=== PATIENT | female | born 1945 | race Caucasian/White ===

== ENCOUNTER 2018-05-18 23:56 | Emergency (ER) | payer MEDICARE, OTHER ==
[~2018-05-18] VITALS: Ht 175.3 cm; Wt 124.7 kg
[2018-05-19] MEDS ORDERED: CYCL10 PO (01:27)
== END 2018-05-19 02:05 | disposition home or self-care (01) ==
LOC: ER 23:56
DX: G89.29 Other chronic pain (principal); M54.5 Low back pain; Z88.6 Allergy status to analgesic agent; Z88.8 Allergy status to other drugs, medicaments and biological substances; N18.9 Chronic kidney disease, unspecified
CPT/HCPCS: 99282

== ENCOUNTER → 2018-10-05 | Outpatient (CLI) | payer MEDICARE, OTHER ==
[~2018-10-05] MED LIST: CYCL10 PO
[2018-10-05 22:33] LABS: Creatinine, Urine Random 81.8 mg/dL (27.00-270.00)
[2018-10-05 22:35] LABS: Microalb/Creat Ratio UR, Rand 325.183 mg/g (0.000-30.000)
== END | disposition home or self-care (01) ==
LOC: LAB SHORT 11:39 → LAB 11:39
PROVIDERS: Nurse Practitioner Family
DX: E11.65 Type 2 diabetes mellitus with hyperglycemia (principal)
CPT/HCPCS: 82043; 82570

== ENCOUNTER → 2019-10-14 | Outpatient (CLI) | payer MEDICARE, OTHER ==
[2019-10-14 20:39] LABS: Creatinine, Urine Random 86.7 mg/dL (27.00-270.00)
[2019-10-14 20:42] LABS: Microalb/Creat Ratio UR, Rand 239.908 mg/g (0.000-30.000)
== END ==
LOC: LAB 15:10 → LAB SHORT 15:10
PROVIDERS: Nurse Practitioner Family
DX: E11.9 Type 2 diabetes mellitus without complications (principal)
CPT/HCPCS: 82043; 82570

== ENCOUNTER → 2020-01-20 | Outpatient (CLI) | payer MEDICARE, OTHER ==
[2020-01-21 19:12] LABS: Adenovirus F 40/41 Not Detected (NOT DETECT); Astrovirus Not Detected (NOT DETECT); Campylobacter Sp Not Detected (NOT DETECT); Cryptosporidium Not Detected (NOT DETECT); Cyclospora Cayetanensis Not Detected (NOT DETECT); E. Coli O157 Not Detected (NOT DETECT); Entamoeba Histolytica Not Detected (NOT DETECT); Enteroaggregative E. coli-EAEC Not Detected (NOT DETECT); Enteropathogenic E. coli-EPEC Not Detected (NOT DETECT); Enterotoxigenic E. coli-ETEC Not Detected (NOT DETECT); Giardia Lamblia Not Detected (NOT DETECT); Norovirus GI/GII Not Detected (NOT DETECT); Plesiomonas Shigelloides Not Detected (NOT DETECT); Rotavirus A Not Detected (NOT DETECT); Salmonella Sp Not Detected (NOT DETECT); Sapovirus Not Detected (NOT DETECT); Shiga Toxin-prod E. coli-STEC Not Detected (NOT DETECT); Shigella/Enteroin E. coli-EIEC Not Detected (NOT DETECT); Vibrio Cholerae Not Detected (NOT DETECT); Vibrio Sp Not Detected (NOT DETECT); Yersinia Enterocolitica Not Detected (NOT DETECT)
== END | disposition home or self-care (01) ==
LOC: LAB SHORT 15:30 → LAB 15:30 → LAB SHORT 01-21 13:27
PROVIDERS: Nurse Practitioner Family
DX: R19.7 Diarrhea, unspecified (principal)
CPT/HCPCS: 0097U; 87177; 87209

== ENCOUNTER 2020-05-02 15:57 | Emergency (ER) | payer MEDICARE, OTHER ==
[~2020-05-02] VITALS: Ht 175.3 cm; Wt 149.7 kg
[2020-05-02 16:10] LABS: Calcium, Ionized (POC) 1.15 mmol/L (1.10-1.46); Chloride (POC) 99 mmol/L (98-108); Creatinine (POC) 1.7 mg/dL (0.6-1.0); Glucose (ISTAT POC) 140 mg/dL (70-99); Hemoglobin (POC) 13.3 g/dL (12.0-16.0); Potassium (POC) 4.4 mmol/L (3.5-5.5); Sodium (POC) 137 mmol/L (135-148); Total CO2 (POC) 27 mmol/L (21-32)
[2020-05-02] MEDS ORDERED: ALLOPURINOL100 M1 PO (16:30)
[2020-05-02] MEDS ORDERED: EUTHYROX200 MC1 PO (16:31)
[2020-05-02] MEDS ORDERED: EZETIMIBE SIMV PO (16:32)
[2020-05-02 16:35] LABS: BASOPHILS ABSOLUTE AUTO 0.05 K/mm3 (0.00-0.23); BASOPHILS PERCENT AUTO 1 % (0-2); EOSINOPHILS ABSOLUTE AUTO 0.12 K/mm3 (0.00-0.68); EOSINOPHILS PERCENT AUTO 1 % (0-6); Hematocrit 39.6 % (33.0-51.0); Hemoglobin 12.5 g/dL (11.5-16.0); IMMATURE GRAN ABSOLUTE AUTO 0.03 K/mm3 (0.00-0.10); IMMATURE GRAN PERCENT AUTO 0 % (0-1); LYMPHOCYTES ABSOLUTE AUTO 2.09 K/mm3 (0.84-5.20); LYMPHOCYTES PERCENT AUTO 25 % (21-46); MONOCYTES ABSOLUTE AUTO 0.96 K/mm3 (0.16-1.47); MONOCYTES PERCENT AUTO 12 % (4-13); Mean Corpuscular HGB Conc 31.6 g/dL (31.5-36.5); Mean Corpuscular Volume 101 fL (80-100); Mean Platelet Volume 10.2 fL (9.1-12.4); NEUTROPHILS ABSOLUTE AUTO 5.08 K/mm3 (1.96-9.15); NEUTROPHILS PERCENT AUTO 61 % (41-73); Platelet Count 286 K/mm3 (150-400); RDW Coefficient Variation 13.4 % (11.7-14.2); Red Blood Cell Count 3.91 M/mm3 (3.80-5.20); White Blood Cell Count 8.33 K/mm3 (4.00-11.30)
[2020-05-02] MEDS ORDERED: INCRUSE ELPT 62.5MCG INH (16:35)
[2020-05-02] MEDS ORDERED: CARVEDILOL3.125 MG PO (16:36)
[2020-05-02] MEDS ORDERED: FLUTICASONE-SA1 EAC9 INH (16:37)
[2020-05-02] MEDS ORDERED: IPRAT-ALBUT 0.5-3 ML NEB (16:38)
[2020-05-02] MEDS ORDERED: Ventolin/Prove6.7 GM INH (16:39)
[2020-05-02] MEDS ORDERED: FUROSEMIDE40 MG PO (16:41)
[2020-05-02] MEDS ORDERED: Klor-Con 1010 MEQ PO (16:42)
[2020-05-02] MEDS ORDERED: FERREX 150150 M1 PO (16:43)
[2020-05-02] MEDS ORDERED: B-121000 MC7 PO (16:43)
[2020-05-02 16:46] LABS: Alanine Aminotransfer (ALT/SGP 23 U/L (12-78); Albumin, Blood 3.3 g/dL (3.4-5.0); Albumin/Globulin Ratio 0.8 (0.8-1.8); Alk Phos 80 U/L (50-136); Anion Gap 5 mmol/L (6-16); Aspartate Aminotrans (AST/SGOT 27 U/L (12-37); Bilirubin, Total 0.4 mg/dL (0.1-1.0); Blood Urea Nitrogen 26 mg/dL (8-24); Bun/Creatinine Ratio 16.1 (12.0-20.0); CO2, Blood 28 mmol/L (21-32); Calcium, Blood 9.2 mg/dL (8.5-10.1); Chloride, Blood 104 mmol/L (98-108); Creatinine, Blood 1.61 mg/dL (0.40-1.00); Ethanol (Alcohol), Blood, Med <3 mg/dL; Glomerular Filtration Rate 33 (60-); Glucose, Blood 140 mg/dL (70-99); Potassium, Blood 4.5 mmol/L (3.5-5.5); Sodium, Blood 137 mmol/L (136-145); Total Protein, Blood 7.3 g/dL (6.4-8.2)
[2020-05-02 16:52] LABS: International Normalized Ratio 0.94; Prothrombin Time Results 10.1 Sec (9.7-11.5)
[2020-05-02] MEDS ORDERED: Vitamin D2000 UNIT PO (17:33)
[2020-05-02] MEDS ORDERED: CYCL10 PO (17:33)
[2020-05-02] MEDS ORDERED: Hair, Skin & N1 EACH PO (17:34)
[2020-05-02] MEDS ORDERED: PROM25 PO (18:53)
== END 2020-05-02 19:16 | disposition home or self-care (01) ==
LOC: ER 15:57
PROVIDERS: Student in an Organized Health Care Education/Training Program
DX: G45.9 Transient cerebral ischemic attack, unspecified (principal); E11.22 Type 2 diabetes mellitus with diabetic chronic kidney disease; N18.9 Chronic kidney disease, unspecified; Z88.6 Allergy status to analgesic agent; Z79.899 Other long term (current) drug therapy
CPT/HCPCS: 36415; 70450; 80047; 80053; 85014; 85025; 85610; 85730; 93005; 93010; 96374; 96375; 99285-25; G0480; J1200; J2550

== ENCOUNTER 2020-05-04 16:34 | Emergency (ER) | payer MEDICARE, OTHER ==
[~2020-05-04] VITALS: Ht 177.8 cm; Wt 136.1 kg
[~2020-05-04 16:34] MED LIST changes: +ALLOPURINOL100 M1 PO; +B-121000 MC7 PO; +CARVEDILOL3.125 MG PO; +EUTHYROX200 MC1 PO; +EZETIMIBE SIMV PO; +FERREX 150150 M1 PO; +FLUTICASONE-SA1 EAC9 INH; +FUROSEMIDE40 MG PO; +Hair, Skin & N1 EACH PO; +INCRUSE ELPT 62.5MCG INH; +IPRAT-ALBUT 0.5-3 ML NEB; +Klor-Con 1010 MEQ PO; +PROM25 PO; +Ventolin/Prove6.7 GM INH; +Vitamin D2000 UNIT PO
[2020-05-04 17:25] LABS: BASOPHILS ABSOLUTE AUTO 0.08 K/mm3 (0.00-0.23); BASOPHILS PERCENT AUTO 1 % (0-2); EOSINOPHILS ABSOLUTE AUTO 0.13 K/mm3 (0.00-0.68); EOSINOPHILS PERCENT AUTO 2 % (0-6); Hematocrit 41.9 % (33.0-51.0); Hemoglobin 13.4 g/dL (11.5-16.0); IMMATURE GRAN ABSOLUTE AUTO 0.02 K/mm3 (0.00-0.10); IMMATURE GRAN PERCENT AUTO 0 % (0-1); LYMPHOCYTES ABSOLUTE AUTO 2.11 K/mm3 (0.84-5.20); LYMPHOCYTES PERCENT AUTO 27 % (21-46); MONOCYTES ABSOLUTE AUTO 0.87 K/mm3 (0.16-1.47); MONOCYTES PERCENT AUTO 11 % (4-13); Mean Corpuscular Volume 100 fL (80-100); Mean Platelet Volume 10.2 fL (9.1-12.4); NEUTROPHILS ABSOLUTE AUTO 4.51 K/mm3 (1.96-9.15); NEUTROPHILS PERCENT AUTO 58 % (41-73); Platelet Count 308 K/mm3 (150-400); RDW Coefficient Variation 13.2 % (11.7-14.2); Red Blood Cell Count 4.19 M/mm3 (3.80-5.20); White Blood Cell Count 7.72 K/mm3 (4.00-11.30)
[2020-05-04 17:46] LABS: Albumin, Blood 3.9 g/dL (3.4-5.0); Albumin/Globulin Ratio 0.9 (0.8-1.8); Bilirubin, Total 0.5 mg/dL (0.1-1.0); Bun/Creatinine Ratio 16.5 (12.0-20.0); Calcium, Blood 10.5 mg/dL (8.5-10.1); Creatinine, Blood 1.76 mg/dL (0.40-1.00); Globulin, Blood 4.4 g/dL (2.2-4.0); Potassium, Blood 4.2 mmol/L (3.5-5.5); Total Protein, Blood 8.3 g/dL (6.4-8.2)
[2020-05-04] MEDS ORDERED: COMPAZINE10 MG PO (22:03)
== END 2020-05-04 22:22 | disposition home or self-care (01) ==
LOC: ER 16:34
PROVIDERS: Physician Assistant
DX: I12.9 Hypertensive chronic kidney disease with stage 1 through stage 4 chronic kidney disease, or unspecified chronic kidney disease (principal); E11.22 Type 2 diabetes mellitus with diabetic chronic kidney disease; N18.9 Chronic kidney disease, unspecified; Z91.81 History of falling; Z88.6 Allergy status to analgesic agent; Z79.899 Other long term (current) drug therapy
CPT/HCPCS: 36415; 70450; 80053; 85025; 93005; 93010; 96374; 96375; 99284-25; J0780; J1200

== ENCOUNTER 2020-10-21 14:23 | Inpatient (IN) | payer MEDICARE, OTHER ==
[~2020-10-21] VITALS: Ht 177.8 cm; Wt 164.8 kg
[~2020-10-21 14:23] MED LIST changes: -ALLOPURINOL100 M1 PO; -CARVEDILOL3.125 MG PO; +COMPAZINE10 MG PO; -EUTHYROX200 MC1 PO; -EZETIMIBE SIMV PO; -IPRAT-ALBUT 0.5-3 ML NEB; -Ventolin/Prove6.7 GM INH
[2020-10-21 15:33] LABS: BASOPHILS ABSOLUTE AUTO 0.05 K/mm3 (0.00-0.23); BASOPHILS PERCENT AUTO 0 % (0-2); EOSINOPHILS ABSOLUTE AUTO 0.16 K/mm3 (0.00-0.68); EOSINOPHILS PERCENT AUTO 1 % (0-6); Hematocrit 20.8 % (33.0-51.0); IMMATURE GRAN ABSOLUTE AUTO 0.08 K/mm3 (0.00-0.10); IMMATURE GRAN PERCENT AUTO 1 % (0-1); LYMPHOCYTES ABSOLUTE AUTO 1.03 K/mm3 (0.84-5.20); LYMPHOCYTES PERCENT AUTO 9 % (21-46); MONOCYTES ABSOLUTE AUTO 0.94 K/mm3 (0.16-1.47); MONOCYTES PERCENT AUTO 8 % (4-13); Mean Corpuscular HGB 26.3 pg (26.0-34.0); Mean Corpuscular HGB Conc 28.4 g/dL (31.5-36.5); Mean Corpuscular Volume 93 fL (80-100); Mean Platelet Volume 9.8 fL (9.1-12.4); NEUTROPHILS ABSOLUTE AUTO 9.31 K/mm3 (1.96-9.15); NEUTROPHILS PERCENT AUTO 81 % (41-73); NRBC ABSOLUTE 0.04 K/mm3 (0.00-0.02); NRBC Auto 0.3 /100 WBC (0.0-0.2); Platelet Count 336 K/mm3 (150-400); RDW Coefficient Variation 16.8 % (11.7-14.2); RDW Standard Deviation 57.2 fL (35.1-46.3); Red Blood Cell Count 2.24 M/mm3 (3.80-5.20); White Blood Cell Count 11.57 K/mm3 (4.00-11.30)
[2020-10-21 15:42] LABS: Hemoglobin 5.9 g/dL (11.5-16.0)
[2020-10-21 15:59] LABS: Albumin/Globulin Ratio 0.8 (0.8-1.8); Bilirubin, Total 0.3 mg/dL (0.1-1.0); Bun/Creatinine Ratio 28.9 (12.0-20.0); Calcium, Blood 8.3 mg/dL (8.5-10.1); Creatinine, Blood 1.9 mg/dL (0.40-1.00); Globulin, Blood 3.6 g/dL (2.2-4.0); Potassium, Blood 4.8 mmol/L (3.5-5.5); Total Protein, Blood 6.6 g/dL (6.4-8.2); Troponin I 0.018 ng/mL (0.000-0.040)
[2020-10-21] MEDS ORDERED: ELIQUIS5 M3 PO (18:06)
[2020-10-21] MEDS ORDERED: INCRUSE 62.5 MCG INH (18:07)
[2020-10-21 18:18] LABS: Percent Saturation 3.1 % (15.0-50.0)
[2020-10-21 19:22] LABS: PCO2 Arterial 69.7 mmHg (35-45); pH Blood Arterial 7.22 (7.35-7.45)
[2020-10-21 19:23] LABS: PO2 Arterial 127 mmHg (80-100)
[2020-10-21 22:35] LABS: Source, Urine Catheter
[2020-10-21 22:37] LABS: Bilirubin, Urine Neg (Neg); Blood, Urine Neg (Neg); Glucose Qualitative, Urine Neg (Neg); Ketones, Urine Neg (Neg); Leukocyte Esterase, Urine Neg (Neg); Nitrite, Urine Neg (Neg); Protein, Urine 3+ (Neg); Urobilinogen, Urine NORM (Normal)
[2020-10-21 22:38] LABS: Appearance, Urine Clear (Clear); Color, Urine Yellow (P-Yellow)
[2020-10-21 22:50] LABS: Amorphous Light (0-Heavy); Bacteria Rare /hpf; Red Blood Cells, Urine Not Seen /hpf (0-2); Squamous Epithelial Cells Few /hpf (Few); White Blood Cells, Urine Rare /hpf (0-5)
[2020-10-21 23:30] LABS: Magnesium, Blood 1.9 mg/dL (1.6-2.4); Phosphorus, Blood 4.9 mg/dL (2.5-4.9); Troponin I 0.018 ng/mL (0.000-0.040)
--- NOTE | 2020-10-22 | NUR ---
PT ADMITTED TO ROOM ICU 1 UNDER PCU STATUS. ARRIVES TO ROOM AT 2215. PT PRESENTS ON 4 LITERS OF OXYGEN PER NASAL CANNULA. PT NOTEABLY CONFUSED. IS UNABLE TO ANSWER QUESTIONS OTHER THAN VERY BASIC. PT NOTED TO PULL AT LINES AND IV'S. REDIRECTION ONLY AFFECTIVE FOR SHORT PERIODS. TO ROOM TO ASSIST IN ADMIT PROCESS. NOTED: PT'S VERY ATTENTIVE TO PT'S NEEDS AND HER DISTRESS. REQUIRES MUCH TEACHING ON PT'S STATUS. HE HAS GONE HOME FOR THE NIGHT. PT'S HAS PULLED OUT ONE OF HER IV'S AND WOULD NOT LEAVE OXYGEN IN PLACE. PLACED PT IN SOFT WRIST RESTRAINTS. TEACHING WAS DONE WITH PT AND HER ON RATIONALE FOR RESTRAINTS. PLACED 18 GAUGE IV TO LEFT AC. LOCKER ATTENDANT ARISTEO TO ROOM. ORDERS RECEIVED. WILL REVIEW CHART AND PLAN OF CARE FOR THIS PT.
[2020-10-22 00:59] LABS: Hematocrit 22.3 % (33.0-51.0); Hemoglobin 6.3 g/dL (11.5-16.0)
--- NOTE | 2020-10-22 03:00 | NUR ---
PT IN PROCESS OF RECEIVING ONE UNIT PRBC'S. NO S/S TRANSFUSION REACTIONS TO NOTE. PT HAS BEEN ON BIPAP AND HAS ATTEMPTED TO GET REMOVED WITH MOVING ABOUT BED AND USING HER FACIAL MUSCLES. PT DOES AGREE TO KEEP BIPAP IN PLACE. HAS BEEN MAINTAINING OXYGEN SATURATIONS > 90 PERCENT. WILL CONTINUE TO MONITOR.
--- NOTE | 2020-10-22 04:59 | NUR ---
DURING PT'S ADMISSION PROCESS, HER CLAIMS THAT WHEN HER PCP PLACED HER ON PREDNISONE, SHE HAS BEEN HAVING ISSUES WITH ITCHING. PT HAD COMPLAINED OF ITCHING WHEN SHE WAS ADMITTED, AND NOW THAT SHE IS AWAKE, IS YELLING OUT ABOUT THE ITCHING. WILL ADMINISTER ONE TIME DOSE OF BENADRYL. PT DOES NOT REDIRECT WELL. HAS COMPLETED HER BLOOD TRANSFUSION WITHOUT ISSUES. THE ITCHING PT IS EXPERIENCING IS SAME PRIOR TO TRANSFUSION.
[2020-10-22 05:42] LABS: BASOPHILS ABSOLUTE AUTO 0.04 K/mm3 (0.00-0.23); BASOPHILS PERCENT AUTO 0 % (0-2); EOSINOPHILS ABSOLUTE AUTO 0.15 K/mm3 (0.00-0.68); EOSINOPHILS PERCENT AUTO 1 % (0-6); Hematocrit 24.9 % (33.0-51.0); Hemoglobin 7.2 g/dL (11.5-16.0); IMMATURE GRAN ABSOLUTE AUTO 0.08 K/mm3 (0.00-0.10); IMMATURE GRAN PERCENT AUTO 1 % (0-1); LYMPHOCYTES ABSOLUTE AUTO 1.21 K/mm3 (0.84-5.20); LYMPHOCYTES PERCENT AUTO 11 % (21-46); MONOCYTES PERCENT AUTO 10 % (4-13); Mean Corpuscular HGB 26.8 pg (26.0-34.0); Mean Corpuscular HGB Conc 28.9 g/dL (31.5-36.5); Mean Corpuscular Volume 93 fL (80-100); Mean Platelet Volume 9.4 fL (9.1-12.4); NEUTROPHILS ABSOLUTE AUTO 8.69 K/mm3 (1.96-9.15); NEUTROPHILS PERCENT AUTO 77 % (41-73); NRBC ABSOLUTE 0.13 K/mm3 (0.00-0.02); NRBC Auto 1.2 /100 WBC (0.0-0.2); Platelet Count 329 K/mm3 (150-400); RDW Coefficient Variation 16.8 % (11.7-14.2); RDW Standard Deviation 56.7 fL (35.1-46.3); Red Blood Cell Count 2.69 M/mm3 (3.80-5.20); White Blood Cell Count 11.27 K/mm3 (4.00-11.30)
[2020-10-22 05:43] LABS: PCO2 Arterial 66.1 mmHg (35-45); PO2 Arterial 64.7 mmHg (80-100); pH Blood Arterial 7.25 (7.35-7.45)
--- NOTE | 2020-10-22 05:47 | NUR ---
PT'S ITCHING IS IMPROVING AFTER RECEIVING BENADRYL. PT DOES REMAIN CONFUSED, AND NEEDING TO BE IN RESTRAINTS. WHEN RELEASING RESTRAINTS TO CHANGE PT'S GOWN AND BLANKETS, SHE QUICKLY REACHES FOR HER IV AND PULSE OXIMETRY PROBE. PT NEEDS TO BE REDIRECTED. PT HAS BEEN MOVING ABOUT BED ON HER OWN. WILL CONTINUE TO MONITOR PT, AND WILL REPORT OFF TO ONCOMING RN.
[2020-10-22 05:48] LABS: Anion Gap 4 mmol/L (6-16); Blood Urea Nitrogen 56 mg/dL (8-24); Bun/Creatinine Ratio 27.6 (12.0-20.0); CO2, Blood 31 mmol/L (21-32); Calcium, Blood 8.6 mg/dL (8.5-10.1); Chloride, Blood 106 mmol/L (98-108); Creatinine, Blood 2.03 mg/dL (0.40-1.00); Glomerular Filtration Rate 25 (60-); Glucose, Blood 122 mg/dL (70-99); Phosphorus, Blood 5.1 mg/dL (2.5-4.9); Potassium, Blood 4.7 mmol/L (3.5-5.5); Sodium, Blood 141 mmol/L (136-145)
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
--- NOTE | 2020-10-22 10:43 | NUR ---
Alerted by Dr. Tabor that the pt's spo2 was too high due to her hx of COPD;. Noted spo2 100% on bipap with fio2 of 30%. Decreased to 25%, spo2 remained 99%. spo2 decreased to 21% and spo2 dropped to 88%. Increased again to 25% and at this time spo2 is 90-93%.
--- NOTE | 2020-10-22 11:06 | NUR ---
Pt while on bipap awakened easily to conversation. At this time, taken off the bipap to take her medications orally. she is talking completely coherently, states that it is October 23 2020, that she came into the hospital for breathing difficulties and is carrying on conversation in detail about her health problems the past month. She is awake, alert, and does not appear sleepy at all.
[2020-10-22 12:51] LABS: PCO2 Arterial 76.7 mmHg (35-45); PO2 Arterial 78.1 mmHg (80-100); pH Blood Arterial 7.22 (7.35-7.45)
--- NOTE | 2020-10-22 13:12 | NUR ---
Repeat ABG noted, and called to provider by Trina Steinberg. Pt was very agreeable to put the BIPAP back on, settings 18/8 and 25% fiO2.
--- NOTE | 2020-10-22 18:22 | NUR ---
SUMMARY Jaquelin wore the bipap for most of the day, and her mentation at noon was much improved. This has remained consistent throughout the afternoon, despite an ABG which was not much better this afternoon. She does not require much oxygen to keep her spo2 greater than 90; only 2 l/min, or 25% fio2 on the bipap. She was compliant with using the bipap. She was oriented, cooperative and appropriate in conversation. Restraints were d'cd at around 0730 this morning. Appetite fair. No bowel movements, and large amounts of urine collected in the villarreal bag. Encouraging limitations on oral intake in compliance with what she said is a home regimen as well, as she is being diuresed for fluid volume overload and CHF. here to visit, and brought her home medications for verification, which were sent to the in house pharmacy.
--- NOTE | 2020-10-22 19:45 | NUR ---
ASSUMED CARE OF PATIENT. SHE IS SLEEPING SOUNDLY ON BIPAP (AVAPS) 20-25/10, TV-400, FIO2-30%. VS WNL. SHE AWAKENS FOR ASSESSMENT AND ORAL CARE WITH SOME DIFFICULTY, BUT IS AO X 4/4 WHEN AWAKE. SHE DENIES PAIN OR SOB. STATES SHE IS COMFORTABLE IN HER CURRENT POSITION AND READY TO GO BACK TO SLEEP.
--- NOTE | 2020-10-22 21:58 | NUR ---
SRINI YORK PLACED PER PROVIDER SINCE DUPLEX STUDY IS NEGATIVE.
--- NOTE | 2020-10-23 01:14 | NUR ---
DR. MARSHALL IS CALLED REGARDING PT C/O ITCHING THAT IS KEEPING HER AWAKE. THE PATIENT HAS BEEN HAVING THIS ITCHING FOR A WEEK AND WAS PUT ON STEROIDS BY HER PCP. NO RASH PRESENT, VS WNL. ORDER FOR BENADRYL 25MG PO X 1 NOW.
[2020-10-23 03:44] LABS: BASOPHILS ABSOLUTE AUTO 0.04 K/mm3 (0.00-0.23); BASOPHILS PERCENT AUTO 0 % (0-2); EOSINOPHILS ABSOLUTE AUTO 0.19 K/mm3 (0.00-0.68); EOSINOPHILS PERCENT AUTO 2 % (0-6); Hematocrit 22.4 % (33.0-51.0); Hemoglobin 6.4 g/dL (11.5-16.0); IMMATURE GRAN ABSOLUTE AUTO 0.06 K/mm3 (0.00-0.10); IMMATURE GRAN PERCENT AUTO 1 % (0-1); LYMPHOCYTES ABSOLUTE AUTO 1.19 K/mm3 (0.84-5.20); LYMPHOCYTES PERCENT AUTO 13 % (21-46); MONOCYTES ABSOLUTE AUTO 0.97 K/mm3 (0.16-1.47); MONOCYTES PERCENT AUTO 11 % (4-13); Mean Corpuscular HGB 26.2 pg (26.0-34.0); Mean Corpuscular HGB Conc 28.6 g/dL (31.5-36.5); Mean Corpuscular Volume 92 fL (80-100); Mean Platelet Volume 9.4 fL (9.1-12.4); NEUTROPHILS ABSOLUTE AUTO 6.44 K/mm3 (1.96-9.15); NEUTROPHILS PERCENT AUTO 73 % (41-73); NRBC ABSOLUTE 0.11 K/mm3 (0.00-0.02); NRBC Auto 1.2 /100 WBC (0.0-0.2); Platelet Count 268 K/mm3 (150-400); RDW Coefficient Variation 17.1 % (11.7-14.2); RDW Standard Deviation 57.6 fL (35.1-46.3); Red Blood Cell Count 2.44 M/mm3 (3.80-5.20); White Blood Cell Count 8.89 K/mm3 (4.00-11.30)
[2020-10-23 04:01] LABS: Albumin, Blood 2.6 g/dL (3.4-5.0); Anion Gap 4 mmol/L (6-16); Blood Urea Nitrogen 56 mg/dL (8-24); Bun/Creatinine Ratio 25.1 (12.0-20.0); CO2, Blood 32 mmol/L (21-32); Calcium, Blood 8.2 mg/dL (8.5-10.1); Chloride, Blood 104 mmol/L (98-108); Creatinine, Blood 2.23 mg/dL (0.40-1.00); Glomerular Filtration Rate 23 (60-); Glucose, Blood 103 mg/dL (70-99); Potassium, Blood 4.1 mmol/L (3.5-5.5); Sodium, Blood 140 mmol/L (136-145)
--- NOTE | 2020-10-23 05:21 | NUR ---
PT REMAINS AOX4/4 THROUGHOUT THE NIGHT. SHE IS ON BIPAP WITH SHORT BREAKS FOR ORAL CARE AND SIPS OF WATER OR ICE CHIPS ALL NIGHT. SHE SLEPT RESTLESSLY AND HAD AN EPISODE OF SEVERE ITCHING WHICH WAS RELEIVED WITH LOTION TO AFFECTED AREAS AND PO BENADRYL. NO STOOL PASSED, 1400 UO, AM H&H 6.4/24. DR. MARSHALL IS NOTIFIED OF LABS AND 1 UNIT PRBC'S ORDERED. PT IS PLEASANT AND COOPERATIVE, BUT DOES NOT CARE FOR THE BIPAP MASK.
[2020-10-23 11:22] LABS: Hematocrit 24.6 % (33.0-51.0); Hemoglobin 7.3 g/dL (11.5-16.0)
--- NOTE | 2020-10-23 12:30 | NUR ---
REASSESSMENT PT IS ALERT AND ORIENTED x4. O2 DECREASED TO 1L NC AND HAS MAINTAINED SPO2 BETWEEN 88-94%. OCCUPATIONAL THERAPY ASSISTED PT UP TO CHAIR AND PT IS TOLERATING WELL. WILLIAMSON TO GRAVITY DRAINING CLEAR YELLOW URINE.
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
--- NOTE | 2020-10-23 16:30 | NUR ---
REASSESMENT PT REMAINS A&Ox4. 02 1L WHILE PT AWAKE, 2L WHILE SLEEPING, PT REPORTS HER BREATHING IS EASIER. WILLIAMSON TO GRAVITY, DRAINING YELLOW URINE. SINUS RHYTHM ON THE MONITOR, VITALS HAVE REMAINED STABLE. 1 PERSON ASSIST TO AMBULATE/TRANSFER.
--- NOTE | 2020-10-23 18:08 | NUR ---
TRANSFER OF CARE REPORT GIVEN TO RENATA JACKSON IN PCU. PT TRANSFERRED TO PCU 1. BELONGINGS GATHERED AND TAKEN WITH PT. PT ESCORTED BY PCT VIA WHEELCHAIR.
[2020-10-23 18:42] LABS: Hematocrit 26.7 % (33.0-51.0); Hemoglobin 7.8 g/dL (11.5-16.0)
--- NOTE | 2020-10-23 18:42 | NUR ---
ASSUMED CARE PT TRANSFERRED TO UNIT FROM ICU VIA WC. PT ABLE TO AMBULATE TO BED VIA SBA. PT ORIENTED TO UNIT. PT DENIES ANY NEEDS AT THIS TIME. WILL CONTINUE TO MONITOR AND REPORT TO ONCOMING RN. CALL LIGHT IN REACH.
[2020-10-23 22:36] LABS: Influenza A, PCR NEGATIVE (NEGATIVE); Influenza B, PCR NEGATIVE (NEGATIVE); Resp Syncytial Virus, PCR NEGATIVE (NEGATIVE); SARS-Cov-2 (COVID-19) PCR, MMC NEGATIVE (NEGATIVE)
[2020-10-24 04:06] LABS: Hematocrit 27.4 % (33.0-51.0)
[2020-10-24 04:27] LABS: Bun/Creatinine Ratio 27.3 (12.0-20.0); Calcium, Blood 8.6 mg/dL (8.5-10.1); Creatinine, Blood 2.16 mg/dL (0.40-1.00); Potassium, Blood 4.4 mmol/L (3.5-5.5)
--- NOTE | 2020-10-24 06:53 | NUR ---
SHIFT SUMMARY PATIENT VERY PLEASENT AND COOPERATIVE THROUGHOUT THE NIGHT. PATIENT APPEARED TO SLEEP WELL THROUGHOUT MOST OF THE NIGHT. THIS MORNING PATIENT REPORTED THAT SHE FELT THAT SHE SLEPT VERY WELL LAST NIGHT. PATIENT CURRENTLY SITTING UP IN BED WATCHING TV. PATIENT REMAINED ON 1-2L O2 THROUGHOUT THE NIGHT. CONTINUOUS BIOX IN PLACE. PATIENT DID NOT USE BIPAP, RESPIRTORY THERAPY STATED SHE DID NOT NEED TO USE BIPAP IF SHE DID NOT WANT TO. PATIENT DENIES ANY NEEDS AT THIS TIME. PATIENT VERY CHEERFUL. WILL CONTINUE CURRENT PLAN OF CARE.
--- NOTE | 2020-10-24 08:59 | NUR ---
10/24/20 0859 Lina Dumont History, Chart, Medications and Allergies reviewed before start of procedure.PATIENT CONFIRMS NPO STATUS AND AGREES WITH SCHEDULED PROCEDURE. O2 VIA N/C INTACT THROUGHOUT SEDATION/PROCEDURE. See Anesthesia record.
--- NOTE | 2020-10-24 09:38 | NUR ---
ASSUMED CARE, MORNING UPDATE PT WAS AWAKE AND PARTICIPATED IN REPORT. PT WAS NPO AT THE START OF SHIFT, MORNING MEDS WERE HELD SINCE PT WAS GOING IN FOR AN UPPER GI SCOPE WITH DR. BARAJAS. PT LEFT WITH DAY SURGERY AT APPROXIMATELY 0845 AND RETURNED AT APPROXIMATELY 0945. PT IS AWAKE AND ORIENTED UPON RETURN. VS STABLE. PT CURRENTLY USING BSC
[2020-10-24 11:43] LABS: Hematocrit 23.3 % (33.0-51.0); Hemoglobin 6.7 g/dL (11.5-16.0)
--- NOTE | 2020-10-24 13:55 | NUR ---
BLOOD TRANSFUSION PT HAD A DROP IN HgB AGAIN THIS MORNING, AN ADDITIONAL UNIT OF pRBC's HAVE BEEN ORDERED AND STARTED. PT IS TOLERATING WELL AT THIS POINT, NO SIGNS OF REACTION, VS STABLE. PT SLEEPING.
[2020-10-24 18:13] LABS: Hematocrit 28.4 % (33.0-51.0); Hemoglobin 8.3 g/dL (11.5-16.0)
--- NOTE | 2020-10-24 18:13 | NUR ---
SHIFT SUMMARY PT RETURNED FROM THE UPPER SCOPE WITH DR. BARAJAS LATE MORNING. PT WAS VERY GROGY FOLLOWING THE PROCEDURE. PT'S HgB HAD DROPPED AGAIN AND SHE HAD SEVERAL MORE BLACK STOOLS FOLLOWING THE SCOPE. PT RECEIVED 1 UNIT OF pRBCs AND TOLERATED WELL. PT HAD A FEW MINUTES OF INTERMITTEN CONFUSION WHEN SHE WAS FIRST WAKING UP. PT WAS ABLE TO BECOME REORIENTED SHE REMAINED AWAKE AND VISITNG WITH HER . A NEW STAT LOCK WAS PLACED ON HER WILLIAMSON THE PREVIOUS HAD BROKEN. VS STABLE, PT ON 2L VIA NC TO MAINTAIN SATS ABOVE 92%.
[2020-10-25 05:40] LABS: Hematocrit 29.7 % (33.0-51.0); Hemoglobin 8.6 g/dL (11.5-16.0)
[2020-10-25 05:56] LABS: Bun/Creatinine Ratio 26.9 (12.0-20.0); Calcium, Blood 8.5 mg/dL (8.5-10.1); Creatinine, Blood 1.93 mg/dL (0.40-1.00); Potassium, Blood 4.1 mmol/L (3.5-5.5)
--- NOTE | 2020-10-25 06:43 | NUR ---
SHIFT SUMMARY PATIENT PLEASENT AND COOPERATIVE. PATIENT AWAKE MUCH OF THE NIGHT, PATIENT STATED THAT SHE JUST WAS NOT ABLE TO SLEEP TONIGHT, HOWEVER PATIENT APPEARED TO BE SLEEPING WELL FOR THE LAST FEW HOURS OF THE SHIFT. PATIENT UP TO THE RECLINER PRN, PATIENT REPORTS SHE OFTEN SLEEPS IN A RECLINER AT HOME. VITAL SIGNS CHARTED. PATIENT CURRENTLY APPEARS TO BE SLEEPING, PATIENT APPEARS TO BE MOVING SELF ABOUT IN BED WELL. WILL CONTINUE CURRENT PLAN OF CARE.
--- NOTE | 2020-10-25 10:00 | NUR ---
ASSUMED CARE FROM ML RN, MORNING UPDATE. PT WAS SLEEPING DURING REPORT. VS STABLE THIS MORNING; PT ABLE TO TAKE ALL MORNING MEDICATIONS. PT DANGLED AT THE EDGE OF THE BED FOR BREAKFAST AND MEDS BEFORE LYING BACK DOWN TO REST. PT REMAINS ON 2L O2 VIA NC. PT IS AWAITING DISCHARGE TODAY FOLLOWING HOME O2 EVALUATION WITH RT.
[2020-10-25] MEDS ORDERED: ASCO500 PO (12:33)
--- NOTE | 2020-10-25 13:28 | NUR ---
DISCHARGE PT COMPLETED HER HOME O2 EVALUATION WITH RESPIRATORY THERAPY AND IT WAS DETERMINED THAT SHE SHOULD BE ON 2L O2 VIA NC AT HOME; ARRANGEMENTS HAVE BEEN MADE WITH LINCARE. WILLIAMSON WAS DC'D IN PREP FOR DISCHARGE WAS THE POWERGLIDE AND IV. VS STABLE, PT RELEASED HOME WITH SPOUSE AND ESCORTED OUT VIA WHEELCHAIR AT APPROXIMATELY 1310
== END 2020-10-25 13:10 | disposition home or self-care (01) | DRG 291 ==
LOC: ER 14:23 → ERHOLD 18:10 → ICUE 22:03 → PCU 10-22 00:17 → ICUE 10-22 00:17 → PCU 10-23 18:09
PROVIDERS: Emergency Medicine; Internal Medicine Gastroenterology; Nurse Practitioner Acute Care; Physician Assistant; Student in an Organized Health Care Education/Training Program; ADMIT Internal Medicine
PROC: 5A09357 Assistance with Respiratory Ventilation, Less than 24 Consecutive Hours, Continuous Positive Airway Pressure (ICD-10-PCS; principal; 2020-10-22)
PROC: 0DB98ZX Excision of Duodenum, Via Natural or Artificial Opening Endoscopic, Diagnostic (ICD-10-PCS; 2020-10-24)
DX: I50.31 Acute diastolic (congestive) heart failure (principal); J96.02 Acute respiratory failure with hypercapnia; Z68.41 Body mass index [BMI] 40.0-44.9, adult; N17.9 Acute kidney failure, unspecified; E87.2 Acidosis; J98.11 Atelectasis; Z87.891 Personal history of nicotine dependence; E66.01 Morbid (severe) obesity due to excess calories; E11.22 Type 2 diabetes mellitus with diabetic chronic kidney disease; Q24.9 Congenital malformation of heart, unspecified; I08.0 Rheumatic disorders of both mitral and aortic valves; D64.89 Other specified anemias; N18.32 Chronic kidney disease, stage 3b; J44.9 Chronic obstructive pulmonary disease, unspecified; I48.0 Paroxysmal atrial fibrillation; E78.5 Hyperlipidemia, unspecified; Z86.73 Personal history of transient ischemic attack (TIA), and cerebral infarction without residual deficits; E03.9 Hypothyroidism, unspecified; D50.9 Iron deficiency anemia, unspecified; I27.20 Pulmonary hypertension, unspecified; Z79.01 Long term (current) use of anticoagulants; K31.89 Other diseases of stomach and duodenum; D63.1 Anemia in chronic kidney disease; Z78.1 Physical restraint status
CPT/HCPCS: 0241U; 36415; 36430; 36600; 51702; 71045; 80048; 80053; 80069; 81001; 82728; 82803; 82947; 83540; 83550; 83735; 83880; 84100; 84484; 85014; 85018; 85025; 85379; 86850; 86900; 86901; 86923; 88305; 93005; 93010; 93306; 93970; 94640; 94660; 94761; 94762; 96374-59; 96375; 96375-59; 97110; 97162; 97165; 97530; 99285-25; A9270; C1751; G0378; J1200; J1940; J2060; J2704; J2916; J7030; J7050; J7120; P9016

== ENCOUNTER 2020-11-04 10:24 | Emergency (ER) | payer MEDICARE, OTHER ==
[~2020-11-04] VITALS: Ht 172.7 cm; Wt 149.7 kg
[~2020-11-04 10:24] MED LIST changes: +ASCO500 PO; +ELIQUIS5 M3 PO; +INCRUSE 62.5 MCG INH
[2020-11-04 11:36] LABS: BASOPHILS ABSOLUTE AUTO 0.04 K/mm3 (0.00-0.23); BASOPHILS PERCENT AUTO 1 % (0-2); EOSINOPHILS PERCENT AUTO 2 % (0-6); Hematocrit 28.5 % (33.0-51.0); Hemoglobin 8.2 g/dL (11.5-16.0); IMMATURE GRAN ABSOLUTE AUTO 0.02 K/mm3 (0.00-0.10); IMMATURE GRAN PERCENT AUTO 0 % (0-1); LYMPHOCYTES ABSOLUTE AUTO 1.09 K/mm3 (0.84-5.20); LYMPHOCYTES PERCENT AUTO 16 % (21-46); MONOCYTES ABSOLUTE AUTO 0.61 K/mm3 (0.16-1.47); MONOCYTES PERCENT AUTO 9 % (4-13); Mean Corpuscular HGB 29.1 pg (26.0-34.0); Mean Corpuscular HGB Conc 28.8 g/dL (31.5-36.5); Mean Corpuscular Volume 101 fL (80-100); Mean Platelet Volume 10.6 fL (9.1-12.4); NEUTROPHILS ABSOLUTE AUTO 5.01 K/mm3 (1.96-9.15); NEUTROPHILS PERCENT AUTO 73 % (41-73); Platelet Count 226 K/mm3 (150-400); RDW Coefficient Variation 21.4 % (11.7-14.2); RDW Standard Deviation 79.2 fL (35.1-46.3); Red Blood Cell Count 2.82 M/mm3 (3.80-5.20); White Blood Cell Count 6.87 K/mm3 (4.00-11.30)
[2020-11-04 11:56] LABS: Albumin, Blood 3.1 g/dL (3.4-5.0); Bilirubin, Total 0.5 mg/dL (0.1-1.0); Bun/Creatinine Ratio 32.7 (12.0-20.0); Calcium, Blood 8.5 mg/dL (8.5-10.1); Creatinine, Blood 1.47 mg/dL (0.40-1.00); Globulin, Blood 3.2 g/dL (2.2-4.0); Total Protein, Blood 6.3 g/dL (6.4-8.2)
[2020-11-04 15:24] LABS: Source, Urine Clean Catch
[2020-11-04 15:26] LABS: Appearance, Urine Clear (Clear); Bilirubin, Urine Neg (Neg); Blood, Urine 4+ (Neg); Color, Urine Yellow (P-Yellow); Glucose Qualitative, Urine Neg (Neg); Ketones, Urine Neg (Neg); Leukocyte Esterase, Urine Neg (Neg); Nitrite, Urine Neg (Neg); Protein, Urine 2+ (Neg); Specific Gravity, Urine 1.015 (1.003-1.022); Urobilinogen, Urine NORM (Normal)
[2020-11-04 15:48] LABS: Bacteria Few /hpf; Squamous Epithelial Cells Few /hpf (Few); White Blood Cells, Urine 0-2 /hpf (0-5)
== END 2020-11-04 16:13 | disposition home or self-care (01) ==
LOC: ER 10:24
PROVIDERS: Emergency Medicine; Physician Assistant
DX: K92.2 Gastrointestinal hemorrhage, unspecified (principal); J44.9 Chronic obstructive pulmonary disease, unspecified; E11.22 Type 2 diabetes mellitus with diabetic chronic kidney disease; N18.9 Chronic kidney disease, unspecified; I25.10 Atherosclerotic heart disease of native coronary artery without angina pectoris; I50.9 Heart failure, unspecified; Z79.01 Long term (current) use of anticoagulants; Z88.6 Allergy status to analgesic agent; Z79.82 Long term (current) use of aspirin; Z79.899 Other long term (current) drug therapy
CPT/HCPCS: 36415; 74177; 80053; 81001; 85025; 86850; 86900; 86901; 93005; 93010; 96374-59; 99284-25; A9270; J1200; J7030; Q9967

== ENCOUNTER 2020-11-16 14:37 | Emergency (ER) | payer MEDICARE, OTHER ==
[~2020-11-16] VITALS: Ht 172.7 cm; Wt 145.2 kg
[2020-11-16 16:08] LABS: BASOPHILS ABSOLUTE AUTO 0.03 K/mm3 (0.00-0.23); BASOPHILS PERCENT AUTO 1 % (0-2); EOSINOPHILS ABSOLUTE AUTO 0.06 K/mm3 (0.00-0.68); EOSINOPHILS PERCENT AUTO 1 % (0-6); Hematocrit 26.9 % (33.0-51.0); Hemoglobin 7.5 g/dL (11.5-16.0); IMMATURE GRAN ABSOLUTE AUTO 0.01 K/mm3 (0.00-0.10); IMMATURE GRAN PERCENT AUTO 0 % (0-1); LYMPHOCYTES PERCENT AUTO 9 % (21-46); MONOCYTES ABSOLUTE AUTO 0.36 K/mm3 (0.16-1.47); MONOCYTES PERCENT AUTO 7 % (4-13); Mean Corpuscular HGB 28.5 pg (26.0-34.0); Mean Corpuscular HGB Conc 27.9 g/dL (31.5-36.5); Mean Corpuscular Volume 102 fL (80-100); Mean Platelet Volume 10.7 fL (9.1-12.4); NEUTROPHILS ABSOLUTE AUTO 4.49 K/mm3 (1.96-9.15); NEUTROPHILS PERCENT AUTO 82 % (41-73); Platelet Count 270 K/mm3 (150-400); RDW Coefficient Variation 19.9 % (11.7-14.2); RDW Standard Deviation 75.7 fL (35.1-46.3); Red Blood Cell Count 2.63 M/mm3 (3.80-5.20); White Blood Cell Count 5.45 K/mm3 (4.00-11.30)
[2020-11-16 16:32] LABS: Albumin, Blood 3.1 g/dL (3.4-5.0); Albumin/Globulin Ratio 0.9 (0.8-1.8); Bilirubin, Total 0.6 mg/dL (0.1-1.0); Bun/Creatinine Ratio 24.9 (12.0-20.0); Calcium, Blood 8.5 mg/dL (8.5-10.1); Creatinine, Blood 1.69 mg/dL (0.40-1.00); Globulin, Blood 3.4 g/dL (2.2-4.0); Potassium, Blood 5.1 mmol/L (3.5-5.5); Total Protein, Blood 6.5 g/dL (6.4-8.2); Troponin I 0.018 ng/mL (0.000-0.040)
[2020-11-16] MEDS ORDERED: DOXY100 PO (17:08)
[2020-11-16] MEDS ORDERED: Prednisone20 MG PO (17:08)
== END 2020-11-16 19:05 | disposition home or self-care (01) ==
LOC: ER 14:37
PROVIDERS: Emergency Medicine
DX: J44.1 Chronic obstructive pulmonary disease with (acute) exacerbation (principal); E11.9 Type 2 diabetes mellitus without complications; Z79.01 Long term (current) use of anticoagulants; Z88.6 Allergy status to analgesic agent; Z79.899 Other long term (current) drug therapy
CPT/HCPCS: 71045; 80053; 83880; 84484; 85025; 93005; 93010; 96374; 99285-25; A9270; J2930

== ENCOUNTER 2020-11-23 01:08 | Day surgery (SDC) | payer MEDICARE, OTHER ==
[~2020-11-23 01:08] MED LIST changes: +DOXY100 PO; +Prednisone20 MG PO
[2020-11-23] MEDS ORDERED: IRON (13:59)
--- NOTE | 2020-11-23 14:09 | NUR ---
PT ADMITTED TO [facility]. O2 AT 3LPM. LUNGS WITH EXPIRATORY WHEEZES THAT CLEARED WITH COUGH.
== END 2020-11-23 17:37 | disposition home or self-care (01) ==
LOC: ATC 01:08
DX: E11.22 Type 2 diabetes mellitus with diabetic chronic kidney disease (principal); N18.32 Chronic kidney disease, stage 3b; D63.1 Anemia in chronic kidney disease; I50.31 Acute diastolic (congestive) heart failure; J44.9 Chronic obstructive pulmonary disease, unspecified; E78.5 Hyperlipidemia, unspecified; E03.9 Hypothyroidism, unspecified; I48.0 Paroxysmal atrial fibrillation; K31.89 Other diseases of stomach and duodenum
CPT/HCPCS: 36415; 36430; 86850; 86900; 86901; 86923; 96374; J7050; P9016

== ENCOUNTER 2020-12-08 15:29 | Inpatient (IN) | payer MEDICARE, OTHER ==
[~2020-12-08] VITALS: Ht 172.7 cm; Wt 138.0 kg
[~2020-12-08 15:29] MED LIST changes: +IRON
[2020-12-08 17:12] LABS: BASOPHILS ABSOLUTE AUTO 0.01 K/mm3 (0.00-0.23); BASOPHILS PERCENT AUTO 0 % (0-2); EOSINOPHILS ABSOLUTE AUTO 0.07 K/mm3 (0.00-0.68); EOSINOPHILS PERCENT AUTO 1 % (0-6); Hematocrit 31.3 % (33.0-51.0); Hemoglobin 9.2 g/dL (11.5-16.0); IMMATURE GRAN ABSOLUTE AUTO 0.01 K/mm3 (0.00-0.10); IMMATURE GRAN PERCENT AUTO 0 % (0-1); LYMPHOCYTES ABSOLUTE AUTO 0.66 K/mm3 (0.84-5.20); LYMPHOCYTES PERCENT AUTO 12 % (21-46); MONOCYTES ABSOLUTE AUTO 0.48 K/mm3 (0.16-1.47); MONOCYTES PERCENT AUTO 9 % (4-13); Mean Corpuscular HGB 28.8 pg (26.0-34.0); Mean Corpuscular HGB Conc 29.4 g/dL (31.5-36.5); Mean Corpuscular Volume 98 fL (80-100); NEUTROPHILS ABSOLUTE AUTO 4.29 K/mm3 (1.96-9.15); NEUTROPHILS PERCENT AUTO 78 % (41-73); Platelet Count 296 K/mm3 (150-400); RDW Coefficient Variation 19.9 % (11.7-14.2); Red Blood Cell Count 3.19 M/mm3 (3.80-5.20); White Blood Cell Count 5.52 K/mm3 (4.00-11.30)
[2020-12-08 17:17] LABS: Base Excess Venous 16.9 mmol/L; Bicarbonate Venous 37.8 mmol/L (24.0-30.0); PCO2 Venous 77.9 mmHg (38-42); PO2 Venous 40.8 mmHg (38-42); pH Blood Venous 7.35 (7.34-7.37)
[2020-12-08 17:32] LABS: Albumin/Globulin Ratio 0.8 (0.8-1.8); Bilirubin, Total 0.5 mg/dL (0.1-1.0); Bun/Creatinine Ratio 25.1 (12.0-20.0); Calcium, Blood 9.1 mg/dL (8.5-10.1); Creatinine, Blood 1.95 mg/dL (0.40-1.00); Globulin, Blood 3.8 g/dL (2.2-4.0); Potassium, Blood 3.8 mmol/L (3.5-5.5); Total Protein, Blood 6.8 g/dL (6.4-8.2); Troponin I 0.051 ng/mL (0.000-0.040)
[2020-12-08 17:36] LABS: Influenza A, PCR NEGATIVE (NEGATIVE); Influenza B, PCR NEGATIVE (NEGATIVE); Resp Syncytial Virus, PCR NEGATIVE (NEGATIVE); SARS-Cov-2 (COVID-19) PCR, MMC NEGATIVE (NEGATIVE)
[2020-12-08] MEDS ORDERED: METO5 PO (18:55)
[2020-12-08] MEDS ORDERED: FURO40 PO (18:56)
[2020-12-08] MEDS ORDERED: PANT40 PO (18:57)
[2020-12-08] MEDS ORDERED: COREG12.5 MG PO (18:57)
[2020-12-08] MEDS ORDERED: ALLOPURINOL100 M1 PO (18:57)
[2020-12-08] MEDS ORDERED: EZETIMIBE SIMV PO (18:58)
[2020-12-08] MEDS ORDERED: EUTHYROX200 MC1 PO (18:59)
[2020-12-08] MEDS ORDERED: INCRUSE ELPT 62.5MCG INH (18:59)
[2020-12-08] MEDS ORDERED: IPRAT-ALBUT 0.5-3 ML NEB (19:00)
[2020-12-08] MEDS ORDERED: Ventolin/Prove6.7 GM INH (19:00)
[2020-12-08] MEDS ORDERED: FLUT1DIS5 INH (19:01)
--- NOTE | 2020-12-08 23:53 | NUR ---
ADMIT NOTE THE PT ARRIVED TO PCU FROM ED AT APPROX 2100. PT AMBULATED INDEPENDENTLY FROM ED STRETCHER TO PCU BED. PT VISIBLY SOB. SP02>90% ON 3L NC. TELEMETRY READS NSR, HR 70'S. PT HAS BLE +3 EDEMA. PT DENIES PAIN. PT'S IN ROOM TO DELIVER HOME MEDICATIONS FOR MED REQ. LASIX NOT GIVEN IN ER. CALL PLACED TO KATY ALBERTS. KATY ALBERTS WITH ORDERS FOR IV LASIX, SEE EMAR. PT ORIENTED TO ROOM. CALL LIGHT IN REACH. BED IN LOW POSITION.
[2020-12-09 01:31] LABS: BASOPHILS ABSOLUTE AUTO 0.01 K/mm3 (0.00-0.23); BASOPHILS PERCENT AUTO 0 % (0-2); EOSINOPHILS PERCENT AUTO 0 % (0-6); Hematocrit 30.6 % (33.0-51.0); Hemoglobin 9.1 g/dL (11.5-16.0); IMMATURE GRAN ABSOLUTE AUTO 0.02 K/mm3 (0.00-0.10); IMMATURE GRAN PERCENT AUTO 0 % (0-1); LYMPHOCYTES ABSOLUTE AUTO 0.46 K/mm3 (0.84-5.20); LYMPHOCYTES PERCENT AUTO 10 % (21-46); MONOCYTES ABSOLUTE AUTO 0.06 K/mm3 (0.16-1.47); MONOCYTES PERCENT AUTO 1 % (4-13); Mean Corpuscular HGB 28.5 pg (26.0-34.0); Mean Corpuscular HGB Conc 29.7 g/dL (31.5-36.5); Mean Corpuscular Volume 96 fL (80-100); Mean Platelet Volume 10.4 fL (9.1-12.4); NEUTROPHILS ABSOLUTE AUTO 4.31 K/mm3 (1.96-9.15); NEUTROPHILS PERCENT AUTO 89 % (41-73); Platelet Count 291 K/mm3 (150-400); RDW Coefficient Variation 19.8 % (11.7-14.2); RDW Standard Deviation 70.7 fL (35.1-46.3); Red Blood Cell Count 3.19 M/mm3 (3.80-5.20); White Blood Cell Count 4.86 K/mm3 (4.00-11.30)
[2020-12-09 01:46] LABS: Bun/Creatinine Ratio 26.6 (12.0-20.0); Calcium, Blood 8.9 mg/dL (8.5-10.1); Creatinine, Blood 1.84 mg/dL (0.40-1.00)
--- NOTE | 2020-12-09 05:00 | NUR ---
SHIFT SUMMARY PT A&OX4. SP02>90% ON 3L NC. PT RECEIVED LASIX THIS SHIFT, STATES SHE ALREADY "CAN TALK WITHOUT LOSING BY BREATHE EVERY WORD". TELEMETRY READS NSR, HR 70'S. PT DENIES PAIN. PT DID NOT SLEEP DURING SHIFT, RESTED IN ROOM. PT SAT ON SIDE OF BED, ATE SNACKS DURING SHIFT. ATTEMPED PURWICK CATHETER, PT DID NOT LIKE IT. PT UP TO BSC W/ ONE PERSON ASSIST TO VOID. CALL LIGHT IN REACH. BED IN LOW POSITION. WILL GIVE REPORT TO ONCOMING NURSE.
--- NOTE | 2020-12-09 09:30 | NUR ---
ASSUMED CARE FROM NOC RN PT WAS SLEEPING DURING SHIFT CHANGE BUT WOKE UP SOON AFTER FOR MORNING MEDICATIONS, ASSESSMENT, VS AND BREAKFAST. PT WAS ABLE TO SBA TO THE BSC AND COMPLETE A BED BATH INDPENDENTLY WHILE SITTING AT THE EDGE OF THE BED. VS STABLE, PT ON 3L O2 VIA NC, PT 2-3L AT HOME BASELINE O2. PT IS CURRENTLY WORKING WITH PHYSICAL THERAPY. PT REPORTS FEELING TIRED SHE HAS NOT GOTTEN MUCH SLEEP HOWEVER SHE STATES "I CAN BREATH MUCH BETTER NOW, I'M FEELING BETTER"
--- NOTE | 2020-12-09 14:43 | NUR ---
Spiritual care visit conducted. Patient is lying face down in her PCU-14 bed and asleep. Patient's RN tells me that she will be movingto medical floor soon and so it is ok to wake her up. Patient wakes up easily and openly shares about her medical conditions and the plans of care moving forward. Patient then talks at length about her family, growing up on her family farm in [place] with her 13 siblings. She then talks about her son who lives in [place] and her 4 other siblings that live in the area. Patient states that she has great family support in helping her deal with her medical issues. She also talks about her Confucianist Greta and how much her greta helps her through the tough times in life. Patient had 3 children but one child of a drug overdose several yrs ago. Patient tells me that she knows that she is on the "way out" but she is at peace as she is looking forward to [facility]. She states that she is not done yet and that she is still around for a purpose. I reinforce helpful attitudes and practices and provide therapeutic listening, recitation of scripture and prayer. Patient responds well and shows signs of an elevated mood. I will continue to remain available to patient and family.
--- NOTE | 2020-12-09 14:58 | NUR ---
TRANSFER TO MEDICAL FLOOR PT TRANSFERRED TO MEDICAL FLOOR THIS AFTERNOON AT APPROXIMATELY 1410 VIA WHEELCHAIR WITH ALL PERSONAL BELONGINGS AND ACCOMPANIED BY THE COPYRIGHT MANAGER AND HER SPOUSE. PT'S HOME MEDICATIONS WITH THE EXCEPTION OF THE ONE THAT HAS BEEN VERIFIED FOR THE EMAR HAVE BEEN SENT HOME WITH HER SPOUSE, SANTOS. VS STABLE, PT ON 3L O2 UPON TRANSFER. REPORT GIVEN TO RENATA JIMENEZ RN.
--- NOTE | 2020-12-09 15:36 | NUR ---
TRANSFER NOTE- PT TRANSFERED TO MEDICAL FLOOR FROM PCU. TELEPHONE REPORT COMPLETED WITH REVENUE SETTLEMENTS ADMINISTRATOR. PT ARRIVED ON MEDICAL FLOOR WITH AT THE BEDSIDE. PT ALERT AND ORIENTED, 1P ASSIST WITH TRANSFERS. TELE BOX CONFIRMED AND TRANSFERED TO PT NEW ROOM AT THE TIME OF PT ARRIVAL. PT HAS NO S&S OF DISTRESS AT THIS TIME, DYSPNEA WITH EXERTION IS EVIDENT, NO S&S OF PAIN. LUNG SOUNDS DININISHED WITH FINE WHEEZES IN THE UPPER LOBES. AUDIBLE MURMER ON AUSCULTATION, SINUS RYTHM ON TELE. PT PLEASENT TALKING WITH STAFF AND HER SPOUSE AFTER ARRIVAL.
--- NOTE | 2020-12-09 19:02 | NUR ---
SHIFT SUMMARY- PT ALERT ORIENTED 1P ASSIST WITH TRANSFERS, BSC FOR TOILETING. PT CALLS APPROPRIATELY AND IS AWARE OF HER LIMITATIONS. PT IN BED CURRENTLY, CALL LIGHT IN REACH, NO S&S OF DISTRESS NOTED AT THIS TIME. WILL PASS ON TO NIGHT RN IN BEDSIDE REPORT.
--- NOTE | 2020-12-10 04:21 | NUR ---
HEAD OF INTEGRATED MEDIA SUMMARY NO ACUTE CHANGES NOTED TO PATIENT THIS SHIFT. PT A&OX4, ABLE TO MAKE NEEDS KNOWN. PLEASANT AND COOPERATIVE TO CARE. NO C/O PAIN OR ANY DISCOMFORT. DENIES CP, SOB, OR N&V. PT CONT ON 2LPM O2 VIA NC. SATS >92%. CALM AND RESTED IN BED T/O SHIFT. BED AT LOWEST POSITION. CALL LIGHT WITHIN REACH.
[2020-12-10 05:24] LABS: Albumin, Blood 2.8 g/dL (3.4-5.0); Anion Gap 2 mmol/L (6-16); Blood Urea Nitrogen 62 mg/dL (8-24); Bun/Creatinine Ratio 28.7 (12.0-20.0); CO2, Blood 43 mmol/L (21-32); Calcium, Blood 9.1 mg/dL (8.5-10.1); Chloride, Blood 96 mmol/L (98-108); Creatinine, Blood 2.16 mg/dL (0.40-1.00); Glomerular Filtration Rate 24 (60-); Glucose, Blood 126 mg/dL (70-99); Magnesium, Blood 1.4 mg/dL (1.6-2.4); Phosphorus, Blood 3.9 mg/dL (2.5-4.9); Potassium, Blood 3.8 mmol/L (3.5-5.5); Sodium, Blood 141 mmol/L (136-145)
--- NOTE | 2020-12-10 11:57 | NUR ---
Spiritual care visit conducted. Patient tells me that she will be going home today and that she is ready. Patient talks about her sister, Rosalee and the positive influence and encouragement she has been for the patient. We talk about family and the struggle all the medical issues are physically for the patient. I lsiten empathically and provide prayer. Patient responds well and shows signs of an elevated spirit.
--- NOTE | 2020-12-10 13:59 | NUR ---
DISCHARGE NOTE- PT DISCHARGED HOME WITH HOME HEALTH, VERBAL AND WRITTEN DISCHARGE INSTRUCTIONS PROVIDEDD AND THE PT ACKNOWLEDGED UNDERSTANDING OF THEM. MEDS FAXED TO [facility] AND AN ADDITIONAL ORDER FOR REFILLS CALLED IN FOR PT DUO-NEB TREATMENTS. YAMEL CALLED AND WILL TAKE THE PT NEW NEBULIZER MACHINE TO HER HOME ONCE SHE ARRIVES. PT SPOUSE PRESENT AND IS AWARE OF ALL. PT ESCORTED OUT VIA WC NO S&S OF DISTRESS NOTED AT THE TIME OF DISCHARGE. TELE AND IV DC'D PRIOR TO DISCHARGE.
== END 2020-12-10 13:50 | disposition home health service (06) | DRG 291 ==
LOC: ER 15:29 → PCU 15:30 → MEDS 12-09 14:31
PROVIDERS: Emergency Medicine; Internal Medicine; Nurse Practitioner Acute Care; Physician Assistant; ADMIT Hospitalist
DX: I13.0 Hypertensive heart and chronic kidney disease with heart failure and stage 1 through stage 4 chronic kidney disease, or unspecified chronic kidney disease (principal); I50.33 Acute on chronic diastolic (congestive) heart failure; I24.8 Other forms of acute ischemic heart disease; Z68.42 Body mass index [BMI] 45.0-49.9, adult; N17.9 Acute kidney failure, unspecified; J96.11 Chronic respiratory failure with hypoxia; J96.12 Chronic respiratory failure with hypercapnia; J44.9 Chronic obstructive pulmonary disease, unspecified; G89.29 Other chronic pain; M54.5 Low back pain; E11.22 Type 2 diabetes mellitus with diabetic chronic kidney disease; E66.01 Morbid (severe) obesity due to excess calories; N18.32 Chronic kidney disease, stage 3b; I48.0 Paroxysmal atrial fibrillation; Z20.822 Contact with and (suspected) exposure to COVID-19; K21.9 Gastro-esophageal reflux disease without esophagitis; I27.20 Pulmonary hypertension, unspecified; I08.0 Rheumatic disorders of both mitral and aortic valves; E78.5 Hyperlipidemia, unspecified; E83.42 Hypomagnesemia; K31.89 Other diseases of stomach and duodenum; E03.9 Hypothyroidism, unspecified; D50.9 Iron deficiency anemia, unspecified; Z88.6 Allergy status to analgesic agent; Z91.041 Radiographic dye allergy status; Z99.81 Dependence on supplemental oxygen; Z90.710 Acquired absence of both cervix and uterus; Z90.49 Acquired absence of other specified parts of digestive tract; Z98.890 Other specified postprocedural states; Z79.899 Other long term (current) drug therapy; Z87.891 Personal history of nicotine dependence; Z79.51 Long term (current) use of inhaled steroids
CPT/HCPCS: 0241U; 36415; 71045; 80048; 80053; 80069; 82803; 83735; 83880; 84484; 85025; 85379; 93005; 93010; 94640; 94760; 96374; 97116; 97161; 97530; 99285-25; A9270; J1940; J2930; J3475

== ENCOUNTER 2022-03-02 15:21 | Observation (INO) | payer MEDICARE, OTHER ==
[~2022-03-02] VITALS: Ht 172.7 cm; Wt 151.9 kg
[~2022-03-02 15:21] MED LIST changes: +ALLOPURINOL100 M1 PO; +COREG12.5 MG PO; +EUTHYROX200 MC1 PO; +EZETIMIBE SIMV PO; +FLUT1DIS5 INH; +FURO40 PO; +IPRAT-ALBUT 0.5-3 ML NEB; +METO5 PO; +PANT40 PO; +Ventolin/Prove6.7 GM INH
[2022-03-02 16:36] LABS: BASOPHILS ABSOLUTE AUTO 0.03 K/mm3 (0.00-0.23); BASOPHILS PERCENT AUTO 0 % (0-2); EOSINOPHILS ABSOLUTE AUTO 0.15 K/mm3 (0.00-0.68); EOSINOPHILS PERCENT AUTO 2 % (0-6); Hematocrit 20.1 % (33.0-51.0); IMMATURE GRAN ABSOLUTE AUTO 0.03 K/mm3 (0.00-0.10); IMMATURE GRAN PERCENT AUTO 0 % (0-1); LYMPHOCYTES ABSOLUTE AUTO 1.28 K/mm3 (0.84-5.20); LYMPHOCYTES PERCENT AUTO 17 % (21-46); MONOCYTES PERCENT AUTO 11 % (4-13); Mean Corpuscular HGB 31.7 pg (26.0-34.0); Mean Corpuscular HGB Conc 28.9 g/dL (31.5-36.5); Mean Corpuscular Volume 110 fL (80-100); NEUTROPHILS ABSOLUTE AUTO 5.05 K/mm3 (1.96-9.15); NEUTROPHILS PERCENT AUTO 69 % (41-73); NRBC ABSOLUTE 0.03 K/mm3 (0.00-0.02); NRBC Auto 0.4 /100 WBC (0.0-0.2); Platelet Count 268 K/mm3 (150-400); RDW Coefficient Variation 16.4 % (11.7-14.2); RDW Standard Deviation 66.3 fL (35.1-46.3); Red Blood Cell Count 1.83 M/mm3 (3.80-5.20); White Blood Cell Count 7.34 K/mm3 (4.00-11.30)
[2022-03-02 16:45] LABS: Hemoglobin 5.8 g/dL (11.5-16.0)
[2022-03-02 16:55] LABS: International Normalized Ratio 0.97; Prothrombin Time Results 10.2 Sec (9.7-11.5)
[2022-03-02 17:03] LABS: Albumin, Blood 3.1 g/dL (3.4-5.0); Albumin/Globulin Ratio 0.9 (0.8-1.8); Bilirubin, Total 0.3 mg/dL (0.1-1.0); Bun/Creatinine Ratio 20.5 (12.0-20.0); Calcium, Blood 8.4 mg/dL (8.5-10.1); Creatinine, Blood 1.76 mg/dL (0.40-1.00); Globulin, Blood 3.3 g/dL (2.2-4.0); Potassium, Blood 4.5 mmol/L (3.5-5.5); Total Protein, Blood 6.4 g/dL (6.4-8.2)
[2022-03-02] MEDS ORDERED: TRAZ50 PO (21:13)
[2022-03-02] MEDS ORDERED: ANORO ELLIPTA1 EAC1 INH (21:16)
[2022-03-02] MEDS ORDERED: OMEP20ER PO (21:16)
[2022-03-02] MEDS ORDERED: GLIP5ER PO (21:17)
[2022-03-02] MEDS ORDERED: ELIQUIS5 M3 PO (21:17)
[2022-03-02] MEDS ORDERED: ALUMINUM H320 MG/5 M PO (21:19)
[2022-03-03 01:18] LABS: BASOPHILS ABSOLUTE AUTO 0.03 K/mm3 (0.00-0.23); BASOPHILS PERCENT AUTO 0 % (0-2); EOSINOPHILS ABSOLUTE AUTO 0.17 K/mm3 (0.00-0.68); EOSINOPHILS PERCENT AUTO 2 % (0-6); Hematocrit 23.3 % (33.0-51.0); Hemoglobin 7.2 g/dL (11.5-16.0); IMMATURE GRAN ABSOLUTE AUTO 0.03 K/mm3 (0.00-0.10); IMMATURE GRAN PERCENT AUTO 0 % (0-1); LYMPHOCYTES PERCENT AUTO 19 % (21-46); MONOCYTES PERCENT AUTO 10 % (4-13); Mean Corpuscular HGB 31.9 pg (26.0-34.0); Mean Corpuscular HGB Conc 30.9 g/dL (31.5-36.5); Mean Platelet Volume 9.3 fL (9.1-12.4); NEUTROPHILS ABSOLUTE AUTO 5.25 K/mm3 (1.96-9.15); NEUTROPHILS PERCENT AUTO 67 % (41-73); NRBC ABSOLUTE 0.03 K/mm3 (0.00-0.02); NRBC Auto 0.4 /100 WBC (0.0-0.2); Platelet Count 230 K/mm3 (150-400); RDW Coefficient Variation 17.7 % (11.7-14.2); RDW Standard Deviation 66.4 fL (35.1-46.3); Red Blood Cell Count 2.26 M/mm3 (3.80-5.20); White Blood Cell Count 7.78 K/mm3 (4.00-11.30)
[2022-03-03 01:22] LABS: Mean Corpuscular Volume 103 fL (80-100)
[2022-03-03 01:33] LABS: Bun/Creatinine Ratio 20.3 (12.0-20.0); Calcium, Blood 8.4 mg/dL (8.5-10.1); Creatinine, Blood 1.72 mg/dL (0.40-1.00); Potassium, Blood 4.3 mmol/L (3.5-5.5)
--- NOTE | 2022-03-03 01:46 | NUR ---
[address]. Lester. No new orders recieved. Next H&H at 0700.
--- NOTE | 2022-03-03 05:09 | NUR ---
Patient recieved from ED in stable condition. Arrived with O2/2l NC which is her home O2 setting. Skin inspection reveals no acute skin issues. Patient up with minor assistance to void. No c/o lightheaded or dizzy when upright. Voiding. Using call light appropriately. Patient understands NPO status. NO acute issues overnight.
[2022-03-03 08:31] LABS: Hematocrit 25.8 % (33.0-51.0); Hemoglobin 7.7 g/dL (11.5-16.0)
[2022-03-03 12:07] LABS: Influenza A, PCR NEGATIVE (NEGATIVE); Influenza B, PCR NEGATIVE (NEGATIVE); Resp Syncytial Virus, PCR NEGATIVE (NEGATIVE); SARS-Cov-2 (COVID-19) PCR, MMC NEGATIVE (NEGATIVE)
--- NOTE | 2022-03-03 17:16 | NUR ---
03/03/22 1716 Papi Garcia History, Chart, Medications and Allergies reviewed before start of procedure.MONITOR INTACT WITH CONTINUOUS PULSE OXIMETRY AND INTERMITTENT BP.3-LEAD EKG REVIEWED WITH PHYSICIAN PRIOR TO START OF PROCEDURE.O2 VIA POM INTACT THROUGHOUT SEDATION/PROCEDURE. See Anesthesia record.
[2022-03-03 21:42] LABS: Hematocrit 25.5 % (33.0-51.0); Hemoglobin 7.6 g/dL (11.5-16.0)
--- NOTE | 2022-03-03 23:26 | NUR ---
2030 CALLED INTO PATIENT ROOM. PATIENT WITH BLOOD ON HER FACE, GOWN, AND BED. PATIENT PANICKING OVER WAKING UP TO BLOOD ON HER. CLEANED PATIENT AND WAS ABLE TO DETERMINE THAT THE BLOOD WAS FROM THE LEFT NOSTRIL. PRESSURE APPLIED. PATIENT'S MOUTH WAS ALSO BLOODY. HAD PATIENT SWICH AND SPIT TO DETERMINE IF SHE WAS ALSO BLEEDING FROM HER MOUTH. NO BLOOD NOTED. VSS. CALLED DR. GIBSON AND RECIEVED AN ORDER FROM NOW H&H. H&H 7.6. PATIENT CONTINUES TO HAVE SMALL AMOUNTS OF BLOOD DRIP FROM HER LEFT NOSTRIL. PATIENT'S CALLED BY PATIENT. STATES PATIENT GETS NOSEBLEEDS AT HOME ALSO FROM HER NASAL CANNULA.
--- NOTE | 2022-03-04 04:04 | NUR ---
PATIENT WITH VSS ON O2/2L NC OVERNIGHT. PATIENT SLEEPY AND SLOW TO RESPOND AT THE BEGINNING OF THE SHIFT FROM HER EGD EARLIER IN THE DAY. PATIENT EXERIENCED MULTIPLE LEFT NOSTIL NOSE BLEEDS OVERNIGHT. BOTH PATIENT AND HER STATE NOSE BLEEDS ARE COMMON FOR HER DUE TO HER HOME O2 USE. PATIENT WOKE UP AROUND 0330 AND SEEMED MUCH MORE ALERT AND BACK TO HER SELF. UP AD KARTHIKEYAN TO VOID. NO OTHER ACUTE EVENTS OVERNIGHT.
[2022-03-04 09:01] LABS: Percent Saturation 6.6 % (15.0-50.0)
[2022-03-04] MEDS ORDERED: ACET325 PO (12:18)
[2022-03-04] MEDS ORDERED: Diflucan100 MG PO (12:19)
[2022-03-04] MEDS ORDERED: FERRIC GLUCONATE IV (12:24)
--- NOTE | 2022-03-04 13:02 | NUR ---
DISCHARGE INFORMATION GIVEN TO PATIENT AND . PUSHED THE PATIENT OUT IN HER PERSONAL WHEELCHAIR
== END 2022-03-04 12:56 | disposition home or self-care (01) ==
LOC: ER 15:21 → MEDS 15:22 → ER 18:38 → MEDS 18:38
PROVIDERS: Internal Medicine; Physician Assistant; Student in an Organized Health Care Education/Training Program; ADMIT Internal Medicine
PROC: 0DB98ZX Excision of Duodenum, Via Natural or Artificial Opening Endoscopic, Diagnostic (ICD-10-PCS; principal; 2022-03-03 16:00)
DX: K92.1 Melena (principal); K44.9 Diaphragmatic hernia without obstruction or gangrene; D50.9 Iron deficiency anemia, unspecified; J44.9 Chronic obstructive pulmonary disease, unspecified; J96.11 Chronic respiratory failure with hypoxia; E66.01 Morbid (severe) obesity due to excess calories; E03.9 Hypothyroidism, unspecified; E78.5 Hyperlipidemia, unspecified; G47.00 Insomnia, unspecified; I48.0 Paroxysmal atrial fibrillation; I13.0 Hypertensive heart and chronic kidney disease with heart failure and stage 1 through stage 4 chronic kidney disease, or unspecified chronic kidney disease; E11.22 Type 2 diabetes mellitus with diabetic chronic kidney disease; I50.32 Chronic diastolic (congestive) heart failure; N18.30 Chronic kidney disease, stage 3 unspecified; Z79.01 Long term (current) use of anticoagulants; Z87.891 Personal history of nicotine dependence; Z88.6 Allergy status to analgesic agent; Z79.84 Long term (current) use of oral hypoglycemic drugs; Z20.822 Contact with and (suspected) exposure to COVID-19
CPT/HCPCS: 0241U; 36415; 36430; 80048; 80053; 82272; 82728; 82947; 83540; 83550; 83880; 85014; 85018; 85025; 85610; 86850; 86900; 86901; 86923; 93005; 93010; 94640; 94664; 94760; 96365; 96366; 96367; 96376; 99285-25; A9270; C9113; G0378; J2370; J2405; J2704; J2916; J3010; J7030; J7120; P9016

== ENCOUNTER 2022-03-12 15:20 | Day surgery (SDC) | payer MEDICARE, OTHER ==
[~2022-03-12 15:20] MED LIST changes: +ACET325 PO; +ALUMINUM H320 MG/5 M PO; +ANORO ELLIPTA1 EAC1 INH; +Diflucan100 MG PO; +FERRIC GLUCONATE IV; +GLIP5ER PO; +OMEP20ER PO; +TRAZ50 PO; +WARF2.5 PO
== END 2022-03-12 16:55 | disposition home or self-care (01) ==
LOC: ATC 15:20
DX: D50.9 Iron deficiency anemia, unspecified (principal); Z79.01 Long term (current) use of anticoagulants; I48.91 Unspecified atrial fibrillation; J44.9 Chronic obstructive pulmonary disease, unspecified; J96.11 Chronic respiratory failure with hypoxia; I10 Essential (primary) hypertension; E66.01 Morbid (severe) obesity due to excess calories; E03.9 Hypothyroidism, unspecified; E11.9 Type 2 diabetes mellitus without complications; E78.5 Hyperlipidemia, unspecified
CPT/HCPCS: 96365; J2916

== ENCOUNTER 2022-03-30 13:39 | Emergency (ER) | payer MEDICARE, OTHER ==
[~2022-03-30] VITALS: Ht 172.7 cm; Wt 151.9 kg
[2022-03-30 14:49] LABS: BASOPHILS ABSOLUTE AUTO 0.04 K/mm3 (0.00-0.23); BASOPHILS PERCENT AUTO 1 % (0-2); EOSINOPHILS ABSOLUTE AUTO 0.09 K/mm3 (0.00-0.68); EOSINOPHILS PERCENT AUTO 1 % (0-6); Hematocrit 25.1 % (33.0-51.0); Hemoglobin 7.2 g/dL (11.5-16.0); IMMATURE GRAN ABSOLUTE AUTO 0.01 K/mm3 (0.00-0.10); IMMATURE GRAN PERCENT AUTO 0 % (0-1); LYMPHOCYTES ABSOLUTE AUTO 0.87 K/mm3 (0.84-5.20); LYMPHOCYTES PERCENT AUTO 14 % (21-46); MONOCYTES ABSOLUTE AUTO 0.55 K/mm3 (0.16-1.47); MONOCYTES PERCENT AUTO 9 % (4-13); Mean Corpuscular HGB 30.5 pg (26.0-34.0); Mean Corpuscular HGB Conc 28.7 g/dL (31.5-36.5); Mean Corpuscular Volume 106 fL (80-100); Mean Platelet Volume 10.2 fL (9.1-12.4); NEUTROPHILS ABSOLUTE AUTO 4.83 K/mm3 (1.96-9.15); NEUTROPHILS PERCENT AUTO 76 % (41-73); Platelet Count 274 K/mm3 (150-400); RDW Coefficient Variation 17.5 % (11.7-14.2); Red Blood Cell Count 2.36 M/mm3 (3.80-5.20); White Blood Cell Count 6.39 K/mm3 (4.00-11.30)
[2022-03-30 15:04] LABS: Albumin, Blood 3.1 g/dL (3.4-5.0); Albumin/Globulin Ratio 0.9 (0.8-1.8); Bilirubin, Total 0.4 mg/dL (0.1-1.0); Bun/Creatinine Ratio 20.2 (12.0-20.0); Calcium, Blood 8.9 mg/dL (8.5-10.1); Creatinine, Blood 1.63 mg/dL (0.40-1.00); Globulin, Blood 3.3 g/dL (2.2-4.0); Potassium, Blood 4.4 mmol/L (3.5-5.5); Total Protein, Blood 6.4 g/dL (6.4-8.2)
[2022-06-15] MEDS ORDERED: PANT20 PO (15:15)
[2022-06-15] MEDS ORDERED: BUME1 (15:15)
[2022-06-15] MEDS ORDERED: OMEP20ER PO (15:16)
[2022-06-15] MEDS ORDERED: COLCHICINE0.6 MG PO (15:41)
[2022-06-15] MEDS ORDERED: Percocet 5-3251 EACH PO (15:41)
== END 2022-03-30 16:40 | disposition home or self-care (01) ==
LOC: ER 13:39
PROVIDERS: Physician Assistant
DX: K92.1 Melena (principal); I13.0 Hypertensive heart and chronic kidney disease with heart failure and stage 1 through stage 4 chronic kidney disease, or unspecified chronic kidney disease; E11.22 Type 2 diabetes mellitus with diabetic chronic kidney disease; N18.30 Chronic kidney disease, stage 3 unspecified; I50.32 Chronic diastolic (congestive) heart failure; K21.9 Gastro-esophageal reflux disease without esophagitis; E78.5 Hyperlipidemia, unspecified; J44.9 Chronic obstructive pulmonary disease, unspecified; Z88.8 Allergy status to other drugs, medicaments and biological substances; Z88.6 Allergy status to analgesic agent; Z79.899 Other long term (current) drug therapy; Z79.01 Long term (current) use of anticoagulants
CPT/HCPCS: 36415; 80053; 85025; 86850; 86870; 86900; 86901; 86905; 99284

== ENCOUNTER 2022-04-30 14:23 | Emergency (ER) | payer MEDICARE, OTHER ==
[~2022-04-30] VITALS: Ht 172.7 cm; Wt 151.1 kg
[2022-04-30 15:24] LABS: BASOPHILS ABSOLUTE AUTO 0.05 K/mm3 (0.00-0.23); BASOPHILS PERCENT AUTO 1 % (0-2); EOSINOPHILS ABSOLUTE AUTO 0.12 K/mm3 (0.00-0.68); EOSINOPHILS PERCENT AUTO 2 % (0-6); Hematocrit 25.6 % (33.0-51.0); Hemoglobin 7.3 g/dL (11.5-16.0); IMMATURE GRAN PERCENT AUTO 1 % (0-1); LYMPHOCYTES ABSOLUTE AUTO 1.09 K/mm3 (0.84-5.20); LYMPHOCYTES PERCENT AUTO 15 % (21-46); MONOCYTES ABSOLUTE AUTO 0.79 K/mm3 (0.16-1.47); MONOCYTES PERCENT AUTO 11 % (4-13); Mean Corpuscular HGB 28.3 pg (26.0-34.0); Mean Corpuscular HGB Conc 28.5 g/dL (31.5-36.5); Mean Corpuscular Volume 99 fL (80-100); Mean Platelet Volume 10.1 fL (9.1-12.4); NEUTROPHILS ABSOLUTE AUTO 5.22 K/mm3 (1.96-9.15); NEUTROPHILS PERCENT AUTO 71 % (41-73); NRBC ABSOLUTE 0.17 K/mm3 (0.00-0.02); NRBC Auto 2.3 /100 WBC (0.0-0.2); Platelet Count 321 K/mm3 (150-400); RDW Coefficient Variation 16.7 % (11.7-14.2); RDW Standard Deviation 59.7 fL (35.1-46.3); Red Blood Cell Count 2.58 M/mm3 (3.80-5.20); White Blood Cell Count 7.37 K/mm3 (4.00-11.30)
[2022-04-30 15:37] LABS: International Normalized Ratio 1.04; Prothrombin Time Results 10.9 Sec (9.7-11.5)
[2022-04-30 15:40] LABS: Albumin, Blood 3.1 g/dL (3.4-5.0); Albumin/Globulin Ratio 0.9 (0.8-1.8); Bilirubin, Total 0.3 mg/dL (0.1-1.0); Bun/Creatinine Ratio 18.2 (12.0-20.0); Calcium, Blood 8.4 mg/dL (8.5-10.1); Creatinine, Blood 1.98 mg/dL (0.40-1.00); Globulin, Blood 3.6 g/dL (2.2-4.0); Magnesium, Blood 1.3 mg/dL (1.6-2.4); Phosphorus, Blood 3.4 mg/dL (2.5-4.9); Potassium, Blood 5.1 mmol/L (3.5-5.5); Total Protein, Blood 6.7 g/dL (6.4-8.2)
[2022-04-30 17:07] LABS: Source, Urine Clean Catch
[2022-04-30 17:12] LABS: Appearance, Urine Hazy (Clear); Bilirubin, Urine Neg (Neg); Blood, Urine 1+ (Neg); Color, Urine Yellow (P-Yellow); Glucose Qualitative, Urine Neg (Neg); Ketones, Urine Neg (Neg); Leukocyte Esterase, Urine Neg (Neg); Nitrite, Urine Neg (Neg); Protein, Urine 3+ (Neg); Urobilinogen, Urine NORM (Normal)
[2022-04-30 17:22] LABS: Amorphous Mod (0-Heavy); Bacteria Mod /hpf; Mucus Light (0-Heavy); Red Blood Cells, Urine 0-2 /hpf (0-2); Renal Epithelial Rare /hpf (0-Rare); Squamous Epithelial Cells Few /hpf (Few); White Blood Cells, Urine 0-2 /hpf (0-5)
[2022-04-30 17:23] LABS: Hyaline Casts 0-2 /lpf (0-2)
[2022-04-30] MEDS ORDERED: CEFD300 PO (19:49)
== END 2022-04-30 20:21 | disposition home or self-care (01) ==
LOC: ER 14:23
PROVIDERS: Student in an Organized Health Care Education/Training Program
DX: N39.0 Urinary tract infection, site not specified (principal); K21.9 Gastro-esophageal reflux disease without esophagitis; E11.22 Type 2 diabetes mellitus with diabetic chronic kidney disease; I12.9 Hypertensive chronic kidney disease with stage 1 through stage 4 chronic kidney disease, or unspecified chronic kidney disease; N18.30 Chronic kidney disease, stage 3 unspecified; E03.9 Hypothyroidism, unspecified; E78.5 Hyperlipidemia, unspecified; E66.01 Morbid (severe) obesity due to excess calories; J44.9 Chronic obstructive pulmonary disease, unspecified; Z87.891 Personal history of nicotine dependence; Z88.8 Allergy status to other drugs, medicaments and biological substances; Z91.048 Other nonmedicinal substance allergy status; Z79.899 Other long term (current) drug therapy; Z79.01 Long term (current) use of anticoagulants; Z74.09 Other reduced mobility
CPT/HCPCS: 36415; 80053; 81001; 83735; 83880; 84100; 84484; 85025; 85610; 85730; 87086; 93005; 93010; J0696; J3475; P9612

== ENCOUNTER 2022-05-06 23:39 | Inpatient (IN) | payer MEDICARE, OTHER ==
[~2022-05-06] VITALS: Ht 172.7 cm; Wt 150.8 kg
[~2022-05-06 23:39] MED LIST changes: +CEFD300 PO
[2022-05-07 02:19] LABS: Base Excess Venous 11.2 mmol/L; Bicarbonate Venous 32.6 mmol/L (24.0-30.0)
[2022-05-07 02:20] LABS: PCO2 Venous > 105 mmHg (38-42); pH Blood Venous 7.13 (7.34-7.37)
[2022-05-07 02:24] LABS: BASOPHILS ABSOLUTE AUTO 0.02 K/mm3 (0.00-0.23); BASOPHILS PERCENT AUTO 0 % (0-2); EOSINOPHILS ABSOLUTE AUTO 0.04 K/mm3 (0.00-0.68); EOSINOPHILS PERCENT AUTO 1 % (0-6); Hematocrit 30.2 % (33.0-51.0); Hemoglobin 8.1 g/dL (11.5-16.0); IMMATURE GRAN ABSOLUTE AUTO 0.11 K/mm3 (0.00-0.10); IMMATURE GRAN PERCENT AUTO 2 % (0-1); LYMPHOCYTES ABSOLUTE AUTO 0.87 K/mm3 (0.84-5.20); LYMPHOCYTES PERCENT AUTO 12 % (21-46); MONOCYTES ABSOLUTE AUTO 0.66 K/mm3 (0.16-1.47); MONOCYTES PERCENT AUTO 9 % (4-13); Mean Corpuscular HGB Conc 26.8 g/dL (31.5-36.5); Mean Corpuscular Volume 108 fL (80-100); Mean Platelet Volume 9.8 fL (9.1-12.4); NEUTROPHILS ABSOLUTE AUTO 5.76 K/mm3 (1.96-9.15); NEUTROPHILS PERCENT AUTO 77 % (41-73); NRBC ABSOLUTE 0.05 K/mm3 (0.00-0.02); NRBC Auto 0.7 /100 WBC (0.0-0.2); Platelet Count 275 K/mm3 (150-400); RDW Coefficient Variation 19.8 % (11.7-14.2); RDW Standard Deviation 78.1 fL (35.1-46.3); Red Blood Cell Count 2.79 M/mm3 (3.80-5.20); White Blood Cell Count 7.46 K/mm3 (4.00-11.30)
[2022-05-07 02:38] LABS: International Normalized Ratio 1.02; Prothrombin Time Results 10.7 Sec (9.7-11.5)
[2022-05-07 02:43] LABS: Albumin, Blood 3.2 g/dL (3.4-5.0); Albumin/Globulin Ratio 0.8 (0.8-1.8); Bilirubin, Total 0.3 mg/dL (0.1-1.0); Bun/Creatinine Ratio 19.4 (12.0-20.0); Calcium, Blood 8.2 mg/dL (8.5-10.1); Creatinine, Blood 2.27 mg/dL (0.40-1.00); Globulin, Blood 3.9 g/dL (2.2-4.0); Magnesium, Blood 1.8 mg/dL (1.6-2.4); Potassium, Blood 4.7 mmol/L (3.5-5.5); Prolactin 15.1 ng/mL (2.74-19.64); Total Protein, Blood 7.1 g/dL (6.4-8.2)
[2022-05-07 03:21] LABS: Influenza A, PCR NEGATIVE (NEGATIVE); Influenza B, PCR NEGATIVE (NEGATIVE); Resp Syncytial Virus, PCR NEGATIVE (NEGATIVE); SARS-Cov-2 (COVID-19) PCR, MMC NEGATIVE (NEGATIVE)
[2022-05-07 03:52] LABS: PO2 Arterial 72.3 mmHg (80-100)
[2022-05-07 04:06] LABS: pH Blood Arterial 7.27 (7.35-7.45)
[2022-05-07 04:07] LABS: PCO2 Arterial 85.7 mmHg (35-45)
--- NOTE | 2022-05-07 05:57 | NUR ---
SHIFT SUMMARY Assumed care of pt at 0501 as ER admit. A/Ox4, SBA. Maintains over 92% on 10L NC or Bipap 18/8 amd 35%. LS coarse t/o. SR 70s on tele, 3+ pitting edema to pedal/ankles, 2+ ble and generalized t/o. Bruising noted scattered t/o patient states from a recent fall. Pictures in chart. Trending Troponins. Will report to dayshift RN.
[2022-05-07 16:00] LABS: Hematocrit 26.1 % (33.0-51.0); Hemoglobin 7.4 g/dL (11.5-16.0)
--- NOTE | 2022-05-07 17:16 | NUR ---
SHIFT SUMMARY: PT A&Ox4, COOPERATIVE W/CARE, USES CALL LIGHT APPROPRIATELY. PT TRANSITIONED F/BIPAP TO HUM HIFLOW NC AT 8 L/MIN THIS AM, TOLERATING WELL, SATS MAINTAINED >93%. SR ON MONITOR W/RATE 60s-70s. PT IS SBA WHILE TRANSFERING TO/FROM [facility] AND RECLINER. DR RIVERO CONTACTED RE: 1630 BLOOD GLUCOSE CHECK, NEW ORDERS RECEIVED VIA TELEPHONE. AT THIS TIME, PT RESTING IN RECLINER WITH DINNER TRAY. CALL LIGHT WITHIN REACH. WILL CONTINUE TO MONITOR AND TREAT ACCORDINGLY UNTIL CHANGE OF SHIFT.
[2022-05-08 04:55] LABS: PCO2 Arterial 63.3 mmHg (35-45); PO2 Arterial 91.2 mmHg (80-100); pH Blood Arterial 7.37 (7.35-7.45)
[2022-05-08 05:16] LABS: BASOPHILS PERCENT AUTO 0 % (0-2); EOSINOPHILS PERCENT AUTO 0 % (0-6); Hematocrit 25.3 % (33.0-51.0); Hemoglobin 7.4 g/dL (11.5-16.0); IMMATURE GRAN ABSOLUTE AUTO 0.02 K/mm3 (0.00-0.10); IMMATURE GRAN PERCENT AUTO 0 % (0-1); LYMPHOCYTES ABSOLUTE AUTO 0.39 K/mm3 (0.84-5.20); LYMPHOCYTES PERCENT AUTO 7 % (21-46); MONOCYTES ABSOLUTE AUTO 0.09 K/mm3 (0.16-1.47); MONOCYTES PERCENT AUTO 2 % (4-13); Mean Corpuscular HGB 29.6 pg (26.0-34.0); Mean Corpuscular HGB Conc 29.2 g/dL (31.5-36.5); Mean Platelet Volume 10.3 fL (9.1-12.4); NEUTROPHILS ABSOLUTE AUTO 5.32 K/mm3 (1.96-9.15); NEUTROPHILS PERCENT AUTO 92 % (41-73); NRBC ABSOLUTE 0.03 K/mm3 (0.00-0.02); NRBC Auto 0.5 /100 WBC (0.0-0.2); Platelet Count 268 K/mm3 (150-400); RDW Coefficient Variation 19.9 % (11.7-14.2); RDW Standard Deviation 72.7 fL (35.1-46.3); White Blood Cell Count 5.82 K/mm3 (4.00-11.30)
[2022-05-08 05:29] LABS: Mean Corpuscular Volume 101 fL (80-100)
[2022-05-08 05:35] LABS: Calcium, Blood 8.5 mg/dL (8.5-10.1); Creatinine, Blood 2.67 mg/dL (0.40-1.00); Potassium, Blood 5.1 mmol/L (3.5-5.5)
--- NOTE | 2022-05-08 06:12 | NUR ---
A/Ox4 and cooperative with care. SBA. C/o muscle cramping and sore throat as well as a vaginal yeast infection. Struggled to keep Bipap on during the night and barely slept. Denies CP/pressure. Maintains over 93% on 8L NC. BIPAP at NOC. LS exp wheezes t/o. VENCES. NSR on tele 70's. VSS. No acute changes. Will report to dayshift RENATA.
--- NOTE | 2022-05-08 11:59 | NUR ---
PT DISCHARGE TO HOME TODAY WITH DISCHARGE ORDERS, PT TITRATED DOWN TO 4L ON O2, PT WAS ABLE TO TOLERATE, HAS BEEN GETTING UP TO USE THE BEDSIDE COMMODED SBA. NO NEW MEDICATION PER DISCHARGE ORDERS, DISCLOSED INSTRUCTIONS WITH BOTH AND BOTH VERBALIZED UNDERSTANDING. PT TO FOLLOW UP WITH PCP, PT WAS ON COUMADIN AND ELIQUIS AT HOME INSTRUCTED TO MAKE SURE PCP IS AWARE OF PT'S CURRENT MEDICAITONS LISTS, PT WAS DISCHARGED WITH ELIQUIS. PT WITH NO OTHER ISSUES ENCOUNTERED, PT HAS BEEN PLEASANT AND COOPERATIVE. PROVIDED HOME WHEELCHAIR FOR TRANSPORT, ALL BELONGINGS SENT WITH THE PT.
== END 2022-05-08 12:08 | disposition home or self-care (01) | DRG 189 ==
LOC: ER 23:39 → PCU 05-07 03:13
PROVIDERS: Family Medicine; Internal Medicine; Student in an Organized Health Care Education/Training Program; ADMIT Internal Medicine
PROC: 5A09357 Assistance with Respiratory Ventilation, Less than 24 Consecutive Hours, Continuous Positive Airway Pressure (ICD-10-PCS; principal; 2022-05-07)
DX: J96.01 Acute respiratory failure with hypoxia (principal); G92.8 Other toxic encephalopathy; E66.2 Morbid (severe) obesity with alveolar hypoventilation; I50.32 Chronic diastolic (congestive) heart failure; N17.9 Acute kidney failure, unspecified; N18.4 Chronic kidney disease, stage 4 (severe); I13.0 Hypertensive heart and chronic kidney disease with heart failure and stage 1 through stage 4 chronic kidney disease, or unspecified chronic kidney disease; Z68.43 Body mass index [BMI] 50.0-59.9, adult; J44.1 Chronic obstructive pulmonary disease with (acute) exacerbation; Z20.822 Contact with and (suspected) exposure to COVID-19; I24.8 Other forms of acute ischemic heart disease; J96.02 Acute respiratory failure with hypercapnia; D50.9 Iron deficiency anemia, unspecified; I48.0 Paroxysmal atrial fibrillation; K21.9 Gastro-esophageal reflux disease without esophagitis; E78.00 Pure hypercholesterolemia, unspecified; E03.9 Hypothyroidism, unspecified; M10.9 Gout, unspecified; I08.0 Rheumatic disorders of both mitral and aortic valves; E11.22 Type 2 diabetes mellitus with diabetic chronic kidney disease; I27.20 Pulmonary hypertension, unspecified; Z88.8 Allergy status to other drugs, medicaments and biological substances; Z91.041 Radiographic dye allergy status; Z79.899 Other long term (current) drug therapy; Z79.51 Long term (current) use of inhaled steroids; Z79.01 Long term (current) use of anticoagulants; Z79.2 Long term (current) use of antibiotics; Z87.19 Personal history of other diseases of the digestive system; Z98.890 Other specified postprocedural states; Z90.49 Acquired absence of other specified parts of digestive tract; Z90.710 Acquired absence of both cervix and uterus; Z90.721 Acquired absence of ovaries, unilateral; Z87.891 Personal history of nicotine dependence; Z99.81 Dependence on supplemental oxygen
CPT/HCPCS: 0241U; 36415; 36600; 70450; 71045; 80048; 80053; 82803; 82947; 83735; 83880; 84145; 84146; 84484; 85014; 85018; 85025; 85610; 85730; 93005; 93010; 94640; 94660; 94664; 94762; 99285-25; A9270; C1751; J0456; J1815; J2930; J7050; J7512

== ENCOUNTER 2022-06-01 12:27 | Observation (INO) | payer MEDICARE, OTHER ==
[~2022-06-01] VITALS: Ht 172.7 cm; Wt 150.8 kg
[2022-06-01 13:19] LABS: Base Excess Venous 4.3 mmol/L; Bicarbonate Venous 27.1 mmol/L (24.0-30.0); PCO2 Venous 65.4 mmHg (38-42); PO2 Venous 66.1 mmHg (38-42); pH Blood Venous 7.28 (7.34-7.37)
[2022-06-01 14:10] LABS: BASOPHILS ABSOLUTE AUTO 0.01 K/mm3 (0.00-0.23); BASOPHILS PERCENT AUTO 0 % (0-2); EOSINOPHILS PERCENT AUTO 0 % (0-6); Hematocrit 30.7 % (33.0-51.0); Hemoglobin 9.2 g/dL (11.5-16.0); IMMATURE GRAN ABSOLUTE AUTO 0.13 K/mm3 (0.00-0.10); IMMATURE GRAN PERCENT AUTO 2 % (0-1); LYMPHOCYTES ABSOLUTE AUTO 0.77 K/mm3 (0.84-5.20); LYMPHOCYTES PERCENT AUTO 10 % (21-46); MONOCYTES ABSOLUTE AUTO 0.79 K/mm3 (0.16-1.47); MONOCYTES PERCENT AUTO 10 % (4-13); Mean Corpuscular HGB 29.4 pg (26.0-34.0); Mean Corpuscular Volume 98 fL (80-100); Mean Platelet Volume 10.8 fL (9.1-12.4); NEUTROPHILS ABSOLUTE AUTO 5.95 K/mm3 (1.96-9.15); NEUTROPHILS PERCENT AUTO 78 % (41-73); NRBC ABSOLUTE 0.03 K/mm3 (0.00-0.02); NRBC Auto 0.4 /100 WBC (0.0-0.2); Platelet Count 269 K/mm3 (150-400); RDW Coefficient Variation 17.3 % (11.7-14.2); Red Blood Cell Count 3.13 M/mm3 (3.80-5.20); White Blood Cell Count 7.65 K/mm3 (4.00-11.30)
[2022-06-01 14:24] LABS: Influenza A, PCR NEGATIVE (NEGATIVE); Influenza B, PCR NEGATIVE (NEGATIVE); Resp Syncytial Virus, PCR NEGATIVE (NEGATIVE); SARS-Cov-2 (COVID-19) PCR, MMC NEGATIVE (NEGATIVE)
[2022-06-01 14:31] LABS: Albumin, Blood 2.8 g/dL (3.4-5.0); Albumin/Globulin Ratio 0.8 (0.8-1.8); Bilirubin, Total 0.4 mg/dL (0.1-1.0); Bun/Creatinine Ratio 26.6 (12.0-20.0); Calcium, Blood 8.5 mg/dL (8.5-10.1); Creatinine, Blood 1.58 mg/dL (0.40-1.00); Globulin, Blood 3.6 g/dL (2.2-4.0); Total Protein, Blood 6.4 g/dL (6.4-8.2)
[2022-06-01 17:31] LABS: Base Excess Venous 5.9 mmol/L; Bicarbonate Venous 28.5 mmol/L (24.0-30.0); PCO2 Venous 63.4 mmHg (38-42); pH Blood Venous 7.31 (7.34-7.37)
--- NOTE | 2022-06-01 19:14 | NUR ---
shift summary pt came to the floor at 1800. 4l of o2 satting 96%. pt is eager to return home and said her bipap will arrive tomorrow. . pt is allowed to get up to the bedside commode and has been with one person assist. bed in lowest position and call light in reach
[2022-06-02 04:45] LABS: BASOPHILS ABSOLUTE AUTO 0.02 K/mm3 (0.00-0.23); BASOPHILS PERCENT AUTO 0 % (0-2); EOSINOPHILS PERCENT AUTO 0 % (0-6); Hematocrit 30.5 % (33.0-51.0); Hemoglobin 9.4 g/dL (11.5-16.0); IMMATURE GRAN ABSOLUTE AUTO 0.28 K/mm3 (0.00-0.10); IMMATURE GRAN PERCENT AUTO 3 % (0-1); LYMPHOCYTES ABSOLUTE AUTO 0.79 K/mm3 (0.84-5.20); LYMPHOCYTES PERCENT AUTO 10 % (21-46); MONOCYTES ABSOLUTE AUTO 0.22 K/mm3 (0.16-1.47); MONOCYTES PERCENT AUTO 3 % (4-13); Mean Corpuscular HGB 29.8 pg (26.0-34.0); Mean Corpuscular HGB Conc 30.8 g/dL (31.5-36.5); Mean Corpuscular Volume 97 fL (80-100); Mean Platelet Volume 10.9 fL (9.1-12.4); NEUTROPHILS ABSOLUTE AUTO 7.02 K/mm3 (1.96-9.15); NEUTROPHILS PERCENT AUTO 84 % (41-73); NRBC ABSOLUTE 0.06 K/mm3 (0.00-0.02); NRBC Auto 0.7 /100 WBC (0.0-0.2); Platelet Count 245 K/mm3 (150-400); RDW Coefficient Variation 17.4 % (11.7-14.2); RDW Standard Deviation 62.9 fL (35.1-46.3); Red Blood Cell Count 3.15 M/mm3 (3.80-5.20); White Blood Cell Count 8.33 K/mm3 (4.00-11.30)
[2022-06-02 05:00] LABS: Calcium, Blood 8.6 mg/dL (8.5-10.1); Creatinine, Blood 1.77 mg/dL (0.40-1.00); Potassium, Blood 4.9 mmol/L (3.5-5.5)
--- NOTE | 2022-06-02 06:02 | NUR ---
OUTSIDE PARTS SALES SUMMARY PT ALERT AND ORIENTED X4. SBA TO THE BSC WITH URGENCY. SHE HAD TWO LARGE BMS LAST NIGHT. SHE IS NEEDING INCREASE IN OXYGEN TO 4L BY NC WHEN GETTING UP TO THE COMMODE, BUT ABLE TO RETURN TO 2L BY NC WHEN RESTING. PT ATTEMPTED TO USE CPAP BUT REPORTED FEELING "TOO CONGESTED" SO CPAP WAS REMOVED AND OXYGEN PLACED. MEDICATED WITH GUAIFENESIN FOR CONGESTION AND TESSALON PERRLS FOR COUGH. NO COMPLAINTS OF PAIN THAT ISN'T HER "CHRONIC BODY" PAIN. PT TO BE DC'D HOME TO RECEIVE HER BIPAP MACHINE.
[2022-06-02] MEDS ORDERED: FURO40 PO ×2 (12:25→12:27)
[2022-06-02] MEDS ORDERED: BUDESONIDE1 MG/2 M1 INH (12:25)
[2022-06-02] MEDS ORDERED: IPRAT-ALBUT 0.5-3 ML INH (12:28)
[2022-06-02] MEDS ORDERED: PRED20 PO (12:29)
--- NOTE | 2022-06-02 13:06 | NUR ---
DISCHARGE NOTE PT AND EAGER TO BE DISCHARGED. THEY DECLINED TO STAY FOR DR ANAYA GUZMAN. DISCHARGE PAPERWORK NOT COMPLETE AT THE TIME OF DISCHAREGE. PT NOTIFIED THAT IF SHE LEFT WITHOUT PAPERWORK SHE MAY NOT RECIEVE INSTRUCTIONS FROM THE DOCTOR. PT STATES SHE WAS OK TO LEAVE WITHOUT WAITING FOR A DISCHARGE PACKET. IV REMOVED. MEDICATIONS FAXXED TO PTS PHARMACY BUT PAPERWORK NOT HANDED OFF TO THE PATIENT. CHARGE NOTIFIED OF PT HAVING LEFT WITHOUT INSTRUCTIONS. PT DISCHARGED WITH IN A WHEELCHAIR AT 1200
== END 2022-06-02 12:29 | disposition home or self-care (01) ==
LOC: ER 12:27 → MEDS 15:42
PROVIDERS: Emergency Medicine; Nurse Practitioner Acute Care; Physician Assistant; Student in an Organized Health Care Education/Training Program; ADMIT Internal Medicine
DX: J44.1 Chronic obstructive pulmonary disease with (acute) exacerbation (principal); E87.2 Acidosis; J96.22 Acute and chronic respiratory failure with hypercapnia; J96.21 Acute and chronic respiratory failure with hypoxia; I13.0 Hypertensive heart and chronic kidney disease with heart failure and stage 1 through stage 4 chronic kidney disease, or unspecified chronic kidney disease; I50.33 Acute on chronic diastolic (congestive) heart failure; N18.30 Chronic kidney disease, stage 3 unspecified; E11.22 Type 2 diabetes mellitus with diabetic chronic kidney disease; I48.0 Paroxysmal atrial fibrillation; K21.9 Gastro-esophageal reflux disease without esophagitis; E03.9 Hypothyroidism, unspecified; D50.9 Iron deficiency anemia, unspecified; K27.9 Peptic ulcer, site unspecified, unspecified as acute or chronic, without hemorrhage or perforation; I35.0 Nonrheumatic aortic (valve) stenosis; M1A.9XX0 Chronic gout, unspecified, without tophus (tophi); Z88.2 Allergy status to sulfonamides; Z88.6 Allergy status to analgesic agent; Z20.822 Contact with and (suspected) exposure to COVID-19
CPT/HCPCS: 0241U; 36415; 71045; 80048; 80053; 82803; 82947; 83880; 84484; 85025; 93005; 93010; 94640; 94660; 94664; 94762; 96374; 96375; 96376; 99285-25; A9270; G0378; J1940; J2920

== ENCOUNTER 2022-08-01 00:35 | Inpatient (IN) | payer MEDICARE, OTHER ==
[~2022-08-01] VITALS: Ht 167.6 cm; Wt 151.9 kg
[~2022-08-01 00:35] MED LIST changes: +BUDESONIDE1 MG/2 M1 INH; +BUME1; +COLCHICINE0.6 MG PO; +IPRAT-ALBUT 0.5-3 ML INH; +PANT20 PO; +PRED20 PO; +Percocet 5-3251 EACH PO
[2022-08-01 01:53] LABS: Base Excess Venous 6.4 mmol/L; Bicarbonate Venous 28.2 mmol/L (24.0-30.0); PCO2 Venous 71.3 mmHg (38-42); pH Blood Venous 7.28 (7.34-7.37)
[2022-08-01 02:05] LABS: BASOPHILS ABSOLUTE AUTO 0.06 K/mm3 (0.00-0.23); BASOPHILS PERCENT AUTO 1 % (0-2); EOSINOPHILS ABSOLUTE AUTO 0.16 K/mm3 (0.00-0.68); EOSINOPHILS PERCENT AUTO 2 % (0-6); Hematocrit 36.5 % (33.0-51.0); Hemoglobin 10.9 g/dL (11.5-16.0); IMMATURE GRAN ABSOLUTE AUTO 0.07 K/mm3 (0.00-0.10); IMMATURE GRAN PERCENT AUTO 1 % (0-1); LYMPHOCYTES ABSOLUTE AUTO 1.25 K/mm3 (0.84-5.20); LYMPHOCYTES PERCENT AUTO 13 % (21-46); MONOCYTES PERCENT AUTO 7 % (4-13); Mean Corpuscular HGB 30.4 pg (26.0-34.0); Mean Corpuscular HGB Conc 29.9 g/dL (31.5-36.5); Mean Corpuscular Volume 102 fL (80-100); Mean Platelet Volume 10.3 fL (9.1-12.4); NEUTROPHILS ABSOLUTE AUTO 7.32 K/mm3 (1.96-9.15); NEUTROPHILS PERCENT AUTO 77 % (41-73); Platelet Count 231 K/mm3 (150-400); RDW Coefficient Variation 17.7 % (11.7-14.2); RDW Standard Deviation 66.9 fL (35.1-46.3); Red Blood Cell Count 3.58 M/mm3 (3.80-5.20); White Blood Cell Count 9.56 K/mm3 (4.00-11.30)
[2022-08-01 02:13] LABS: Albumin, Blood 3.3 g/dL (3.4-5.0); Albumin/Globulin Ratio 0.9 (0.8-1.8); Bilirubin, Total 0.6 mg/dL (0.1-1.0); Bun/Creatinine Ratio 15.7 (12.0-20.0); Calcium, Blood 8.9 mg/dL (8.5-10.1); Creatinine, Blood 1.72 mg/dL (0.40-1.00); Globulin, Blood 3.7 g/dL (2.2-4.0); Magnesium, Blood 1.4 mg/dL (1.6-2.4); Potassium, Blood 4.4 mmol/L (3.5-5.5)
[2022-08-01 02:44] LABS: Base Excess Venous 4.8 mmol/L; Bicarbonate Venous 26.9 mmol/L (24.0-30.0); PCO2 Venous 69.7 mmHg (38-42); pH Blood Venous 7.27 (7.34-7.37)
[2022-08-01 03:56] LABS: Influenza A, PCR NEGATIVE (NEGATIVE); Influenza B, PCR NEGATIVE (NEGATIVE); Resp Syncytial Virus, PCR NEGATIVE (NEGATIVE); SARS-Cov-2 (COVID-19) PCR, MMC NEGATIVE (NEGATIVE)
--- NOTE | 2022-08-01 18:42 | NUR ---
ADMISSION/SHIFT SUMMARY: PT IS NEW ADMIT, ARRIVING FROM ER APPROX 1600. PT ARRIVES A&Ox4, COOPERATIVE W/CARE, ANSWERS QUESTIONS APPROPRIATELY. O2 SATS MAINTAINED >90% ON BASELINE O2 OF 2 L/MIN NC, BIPAP AT BEDSIDE. PT REPORTS IMPROVEMENT TO SOB, LS CLEAR/COARSE. PT REPORTS OCCASIONAL COUGH PRODUCTIVE OF GREEN SPUTUM. SR ON MONITOR W/RATE IN 70s. SLIGHT EDEMA TO BLE, PT REPORTS IMPROVED AFTER RECEIVING DIURETIC IN ER. SBA TO BSC. AT THIS TIME, PT IS RESTING QUIETLY IN ROOM W/CALL LIGHT IN REACH. WILL CONTINUE TO MONITOR AND TREAT ACCORDINGLY UNTIL CHANGE OF SHIFT.
--- NOTE | 2022-08-01 19:15 | NUR ---
ASSUMED CARE OF PT, BEDSIDE REPORT RECEIVED. PT IS ALERT AND ORIENTED RECLINING IN BED. DENIES NEEDS AT THIS TIME, STATES THAT BREATHING FEELS MUCH IMPROVED FROM ARRIVAL TO ER WELL MARKED IMPROVEMENT TO LOWER EXTREMITY EDEMA. SHE DENIES CP/PRESSURE, DENIES N/V. REVIEWED PLAN OF CARE FOR THIS SHIFT AND UNDERSTANDING IS VERBALIZED. CALL LIGHT VERIFIED IN REACH.
[2022-08-02 04:29] LABS: Hematocrit 32.5 % (33.0-51.0); Hemoglobin 10.6 g/dL (11.5-16.0); Mean Corpuscular HGB 31.5 pg (26.0-34.0); Mean Corpuscular HGB Conc 32.6 g/dL (31.5-36.5); Mean Platelet Volume 10.8 fL (9.1-12.4); Platelet Count 237 K/mm3 (150-400); RDW Coefficient Variation 17.4 % (11.7-14.2); RDW Standard Deviation 61.4 fL (35.1-46.3); Red Blood Cell Count 3.36 M/mm3 (3.80-5.20)
[2022-08-02 04:34] LABS: PCO2 Arterial 54.1 mmHg (35-45); PO2 Arterial 80.4 mmHg (80-100); pH Blood Arterial 7.45 (7.35-7.45)
[2022-08-02 04:36] LABS: Mean Corpuscular Volume 97 fL (80-100)
[2022-08-02 04:48] LABS: Albumin, Blood 3.2 g/dL (3.4-5.0); Anion Gap 8 mmol/L (6-16); Blood Urea Nitrogen 32 mg/dL (8-24); Bun/Creatinine Ratio 20.4 (12.0-20.0); CO2, Blood 35 mmol/L (21-32); Calcium, Blood 9.2 mg/dL (8.5-10.1); Chloride, Blood 97 mmol/L (98-108); Creatinine, Blood 1.57 mg/dL (0.40-1.00); Glomerular Filtration Rate 34 (60-); Glucose, Blood 229 mg/dL (70-99); Magnesium, Blood 1.4 mg/dL (1.6-2.4); Phosphorus, Blood 2.5 mg/dL (2.5-4.9); Potassium, Blood 3.8 mmol/L (3.5-5.5); Sodium, Blood 140 mmol/L (136-145)
--- NOTE | 2022-08-02 06:03 | NUR ---
PT REPORTS THAT SHE HAS BEEN AWAKE MOST OF THIS SHIFT RELATED TO MIDNOC STEROID DOSE. SHE DOES FEEL LIKE HER BREATHING IS BACK TO HER BASELINE OF 0 ASSESSMENT. SATS HAVE MAINTAINED WITH OXYGEN AT HOME FLOW RATE WHEN AWAKE AND BIPAP WITH SLEEP WITH OXYGEN 4 LITER/MIN BLEED IN. SHE IS UP WITH STANDBY ASSIST FOR SAFETY TO USE BEDSIDE COMMODE WITH STEADY GAIT AND TOLERATES WELL. EDEMA IS GREATLY IMPROVED TO LOWER EXTREMITIES PER PT.
[2022-08-02] MEDS ORDERED: AZIT250 PO (11:44)
[2022-08-02] MEDS ORDERED: GUAI600T33 PO (11:49)
[2022-08-02] MEDS ORDERED: MAGNESIUM OXID500 MG PO (11:50)
[2022-08-02] MEDS ORDERED: Prednisone10 MG PO (11:54)
--- NOTE | 2022-08-02 12:47 | NUR ---
DISCHARGE: PT HAS BEEN CLEARED FOR DISCHARGE. IV ACCESS DC'd WNL. PT DRESSES SELF, AT BEDSIDE W/HOME WHEELCHAIR AND HOME O2. PT AND SPOUSE PROVIDED WITH DC PAPERWORK AND INSTRUCTIONS, ALL QUESTIONS ANSWERED, PT V/U. PT DEPARTS IN NAD.
== END 2022-08-02 12:20 | disposition home or self-care (01) | DRG 291 ==
LOC: ER 00:35 → ERHOLD 05:49 → PCU 05:49
PROVIDERS: Internal Medicine; Student in an Organized Health Care Education/Training Program; ADMIT Internal Medicine
PROC: 5A09357 Assistance with Respiratory Ventilation, Less than 24 Consecutive Hours, Continuous Positive Airway Pressure (ICD-10-PCS; principal; 2022-08-01)
PROC: 3E02340 Introduction of Influenza Vaccine into Muscle, Percutaneous Approach (ICD-10-PCS; 2022-08-01)
DX: I13.0 Hypertensive heart and chronic kidney disease with heart failure and stage 1 through stage 4 chronic kidney disease, or unspecified chronic kidney disease (principal); I50.33 Acute on chronic diastolic (congestive) heart failure; J96.21 Acute and chronic respiratory failure with hypoxia; J96.22 Acute and chronic respiratory failure with hypercapnia; J44.1 Chronic obstructive pulmonary disease with (acute) exacerbation; I48.20 Chronic atrial fibrillation, unspecified; Z20.822 Contact with and (suspected) exposure to COVID-19; Z23 Encounter for immunization; I48.0 Paroxysmal atrial fibrillation; I27.20 Pulmonary hypertension, unspecified; K21.9 Gastro-esophageal reflux disease without esophagitis; E11.22 Type 2 diabetes mellitus with diabetic chronic kidney disease; N18.30 Chronic kidney disease, stage 3 unspecified; E03.9 Hypothyroidism, unspecified; E78.5 Hyperlipidemia, unspecified; D63.1 Anemia in chronic kidney disease; B37.31 Acute candidiasis of vulva and vagina; E83.42 Hypomagnesemia; D50.9 Iron deficiency anemia, unspecified; I35.0 Nonrheumatic aortic (valve) stenosis; Z91.14 Patient's other noncompliance with medication regimen; Z99.81 Dependence on supplemental oxygen; Z87.11 Personal history of peptic ulcer disease; Z90.49 Acquired absence of other specified parts of digestive tract; Z90.710 Acquired absence of both cervix and uterus; Z87.891 Personal history of nicotine dependence; Z88.8 Allergy status to other drugs, medicaments and biological substances; Z79.01 Long term (current) use of anticoagulants; Z79.84 Long term (current) use of oral hypoglycemic drugs; Z79.899 Other long term (current) drug therapy
CPT/HCPCS: 0241U; 36415; 36600; 71046; 80053; 80069; 82803; 82947; 83735; 83880; 84145; 84484; 85025; 85027; 90686; 93005; 93010; 94640; 94644; 94660; 94664; 94762; A9270; C9113; J1940; J2270; J2930; J3475; J7060

== ENCOUNTER 2023-07-25 14:07 | Emergency (ER) | payer MEDICARE, OTHER ==
[~2023-07-25] VITALS: Ht 172.7 cm; Wt 142.9 kg
[~2023-07-25 14:07] MED LIST changes: +AZIT250 PO; +Flonase 0.05% N16 GM; +GUAI600T33 PO; +MAGNESIUM OXID500 MG PO; +MELA3 PO; +Prednisone10 MG PO
[2023-07-25 14:42] LABS: BASOPHILS ABSOLUTE AUTO 0.03 K/mm3 (0.00-0.23); BASOPHILS PERCENT AUTO 1 % (0-2); EOSINOPHILS ABSOLUTE AUTO 0.08 K/mm3 (0.00-0.68); EOSINOPHILS PERCENT AUTO 1 % (0-6); Hematocrit 32.7 % (33.0-51.0); Hemoglobin 10.4 g/dL (11.5-16.0); IMMATURE GRAN ABSOLUTE AUTO 0.01 K/mm3 (0.00-0.10); IMMATURE GRAN PERCENT AUTO 0 % (0-1); LYMPHOCYTES ABSOLUTE AUTO 1.37 K/mm3 (0.84-5.20); LYMPHOCYTES PERCENT AUTO 22 % (21-46); MONOCYTES ABSOLUTE AUTO 0.62 K/mm3 (0.16-1.47); MONOCYTES PERCENT AUTO 10 % (4-13); Mean Corpuscular HGB 29.8 pg (26.0-34.0); Mean Corpuscular HGB Conc 31.8 g/dL (31.5-36.5); Mean Corpuscular Volume 94 fL (80-100); Mean Platelet Volume 10.4 fL (9.1-12.4); NEUTROPHILS ABSOLUTE AUTO 4.26 K/mm3 (1.96-9.15); NEUTROPHILS PERCENT AUTO 67 % (41-73); Platelet Count 202 K/mm3 (150-400); RDW Coefficient Variation 17.3 % (11.7-14.2); RDW Standard Deviation 58.4 fL (35.1-46.3); Red Blood Cell Count 3.49 M/mm3 (3.80-5.20); White Blood Cell Count 6.37 K/mm3 (4.00-11.30)
[2023-07-25 15:00] VITALS: BP 145/78
[2023-07-25 15:02] LABS: Albumin, Blood 3.1 g/dL (3.4-5.0); Albumin/Globulin Ratio 0.9 (0.8-1.8); Bilirubin, Total 0.5 mg/dL (0.1-1.0); Bun/Creatinine Ratio 16.8 (12.0-20.0); Calcium, Blood 7.7 mg/dL (8.5-10.1); Creatinine, Blood 1.91 mg/dL (0.40-1.00); Globulin, Blood 3.5 g/dL (2.2-4.0); Potassium, Blood 4.3 mmol/L (3.5-5.5); Total Protein, Blood 6.6 g/dL (6.4-8.2)
== END 2023-07-25 16:47 | disposition home or self-care (01) ==
LOC: ER 14:07
PROVIDERS: Physician Assistant
DX: R07.89 Other chest pain (principal); R79.1 Abnormal coagulation profile; I13.10 Hypertensive heart and chronic kidney disease without heart failure, with stage 1 through stage 4 chronic kidney disease, or unspecified chronic kidney disease; I50.32 Chronic diastolic (congestive) heart failure; N18.30 Chronic kidney disease, stage 3 unspecified; E11.22 Type 2 diabetes mellitus with diabetic chronic kidney disease; J44.9 Chronic obstructive pulmonary disease, unspecified; J96.10 Chronic respiratory failure, unspecified whether with hypoxia or hypercapnia; Z99.81 Dependence on supplemental oxygen; Z79.899 Other long term (current) drug therapy; Z79.890 Hormone replacement therapy; Z91.041 Radiographic dye allergy status
CPT/HCPCS: 71045; 80053; 83880; 85025; 85379; 93005; 93010; 99284-25

== ENCOUNTER → 2023-07-27 | Outpatient (CLI) | payer MEDICARE, OTHER ==
[2023-07-29 10:32] LABS: C DIFFICILE DNA POSITIVE (Negative)
== END | disposition home or self-care (01) ==
LOC: LAB 15:42 → LAB SHORT 15:42
PROVIDERS: Internal Medicine Nephrology
DX: R19.7 Diarrhea, unspecified (principal)
CPT/HCPCS: 87324; 87493

== ENCOUNTER 2024-03-04 16:58 | Emergency (ER) | payer MEDICARE, OTHER ==
[~2024-03-04] VITALS: Ht 172.7 cm; Wt 146.1 kg
[2024-03-04 17:29] LABS: BASOPHILS PERCENT AUTO 1 % (0-2); EOSINOPHILS PERCENT AUTO 3 % (0-6); Hematocrit 27.4 % (33.0-51.0); Hemoglobin 8.5 g/dL (11.5-16.0); IMMATURE GRAN ABSOLUTE AUTO 0.05 K/mm3 (0.00-0.10); IMMATURE GRAN PERCENT AUTO 1 % (0-1); LYMPHOCYTES ABSOLUTE AUTO 1.58 K/mm3 (0.84-5.20); LYMPHOCYTES PERCENT AUTO 15 % (21-46); MONOCYTES ABSOLUTE AUTO 0.81 K/mm3 (0.16-1.47); MONOCYTES PERCENT AUTO 8 % (4-13); Mean Corpuscular HGB 30.8 pg (26.0-34.0); Mean Corpuscular Volume 99 fL (80-100); NEUTROPHILS ABSOLUTE AUTO 7.64 K/mm3 (1.96-9.15); NEUTROPHILS PERCENT AUTO 73 % (41-73); Platelet Count 275 K/mm3 (150-400); RDW Coefficient Variation 17.2 % (11.7-14.2); RDW Standard Deviation 61.1 fL (35.1-46.3); Red Blood Cell Count 2.76 M/mm3 (3.80-5.20); White Blood Cell Count 10.48 K/mm3 (4.00-11.30)
[2024-03-04 17:49] LABS: Albumin, Blood 3.5 g/dL (3.4-5.0); Bilirubin, Total 0.6 mg/dL (0.1-1.0); Bun/Creatinine Ratio 22.7 (12.0-20.0); Calcium, Blood 8.8 mg/dL (8.5-10.1); Creatinine, Blood 1.76 mg/dL (0.40-1.00); Globulin, Blood 3.5 g/dL (2.2-4.0); Potassium, Blood 3.9 mmol/L (3.5-5.5)
[2024-03-04] MEDS ORDERED: Pantoprazole Sodium 40 MG Injection IV ONE (19:10)
[2024-03-04] MEDS ORDERED: Protonix40 MG PO (19:16)
[2024-03-04] MEDS ORDERED: SUCR1 PO (19:16)
[2024-03-04 19:26] VITALS: BP 148/101
== END 2024-03-04 19:28 | disposition home or self-care (01) ==
LOC: ER 16:58
PROVIDERS: Physician Assistant
DX: K92.2 Gastrointestinal hemorrhage, unspecified (principal); D50.0 Iron deficiency anemia secondary to blood loss (chronic); I48.0 Paroxysmal atrial fibrillation; I13.0 Hypertensive heart and chronic kidney disease with heart failure and stage 1 through stage 4 chronic kidney disease, or unspecified chronic kidney disease; E11.22 Type 2 diabetes mellitus with diabetic chronic kidney disease; N18.30 Chronic kidney disease, stage 3 unspecified; I50.32 Chronic diastolic (congestive) heart failure; J96.10 Chronic respiratory failure, unspecified whether with hypoxia or hypercapnia; K21.9 Gastro-esophageal reflux disease without esophagitis; E03.9 Hypothyroidism, unspecified; J44.9 Chronic obstructive pulmonary disease, unspecified; Z99.81 Dependence on supplemental oxygen; Z79.02 Long term (current) use of antithrombotics/antiplatelets; Z79.890 Hormone replacement therapy; Z79.899 Other long term (current) drug therapy; Z88.6 Allergy status to analgesic agent; Z88.8 Allergy status to other drugs, medicaments and biological substances; Z87.19 Personal history of other diseases of the digestive system
CPT/HCPCS: 80053; 85025; 86850; 86900; 86901; 99283

== ENCOUNTER 2024-07-04 15:20 | Inpatient (IN) | payer MEDICARE, OTHER ==
[~2024-07-04] VITALS: Ht 172.7 cm; Wt 139.9 kg
[~2024-07-04 15:20] MED LIST changes: +Protonix40 MG PO; +SUCR1 PO; +TRAZ100 PO
[2024-07-04 16:17] LABS: BASOPHILS ABSOLUTE AUTO 0.05 K/mm3 (0.00-0.23); BASOPHILS PERCENT AUTO 1 % (0-2); EOSINOPHILS ABSOLUTE AUTO 0.14 K/mm3 (0.00-0.68); EOSINOPHILS PERCENT AUTO 2 % (0-6); Hematocrit 21.7 % (33.0-51.0); Hemoglobin 6.8 g/dL (11.5-16.0); IMMATURE GRAN ABSOLUTE AUTO 0.05 K/mm3 (0.00-0.10); IMMATURE GRAN PERCENT AUTO 1 % (0-1); LYMPHOCYTES PERCENT AUTO 16 % (21-46); MONOCYTES ABSOLUTE AUTO 0.56 K/mm3 (0.16-1.47); MONOCYTES PERCENT AUTO 6 % (4-13); Mean Corpuscular HGB 28.5 pg (26.0-34.0); Mean Corpuscular HGB Conc 31.3 g/dL (31.5-36.5); Mean Corpuscular Volume 91 fL (80-100); Mean Platelet Volume 10.8 fL (9.1-12.4); NEUTROPHILS ABSOLUTE AUTO 6.72 K/mm3 (1.96-9.15); NEUTROPHILS PERCENT AUTO 75 % (41-73); NRBC ABSOLUTE 0.03 K/mm3 (0.00-0.02); NRBC Auto 0.3 /100 WBC (0.0-0.2); Platelet Count 277 K/mm3 (150-400); RDW Coefficient Variation 21.4 % (11.7-14.2); RDW Standard Deviation 69.7 fL (35.1-46.3); Red Blood Cell Count 2.39 M/mm3 (3.80-5.20); White Blood Cell Count 8.92 K/mm3 (4.00-11.30)
[2024-07-04] MEDS ORDERED: Pantoprazole Sodium 40 MG Injection IV ONE ×2 (16:25→19:00)
[2024-07-04 16:37] LABS: Albumin, Blood 3.3 g/dL (3.4-5.0); Bilirubin, Total 0.3 mg/dL (0.1-1.0); Bun/Creatinine Ratio 42.9 (12.0-20.0); Calcium, Blood 9.1 mg/dL (8.5-10.1); Creatinine, Blood 2.05 mg/dL (0.40-1.00); Globulin, Blood 3.2 g/dL (2.2-4.0); Potassium, Blood 4.1 mmol/L (3.5-5.5); Total Protein, Blood 6.5 g/dL (6.4-8.2)
[2024-07-04] MEDS ORDERED: Ondansetron HCl 2 MG / ML 2ML Vial IV PRN (18:00)
[2024-07-04] MEDS ORDERED: FLU VACC TS2024-25(6MOS UP)/PF 45 MCG/0.5 ML SYRINGE IM ONE (18:05)
[2024-07-04] MEDS ORDERED: NS 1,000 ML IV SCH ×2 (18:05→18:35)
[2024-07-04 19:25] VITALS: BP 137/77
[2024-07-04 20:03] VITALS: BP 154/68
[2024-07-04 20:42] VITALS: BP 138/62
--- NOTE | 2024-07-04 22:20 | NUR ---
NURSE NOTE PATIENT FINISHED BLOOD INFUSION WITHOUT INCIDENT.
[2024-07-04 23:06] LABS: Hemoglobin 7.1 g/dL (11.5-16.0)
[2024-07-05] VITALS (12 sets, daily range): BP systolic 122–175; BP diastolic 52–80
[2024-07-05] MEDS ORDERED: Insulin Human Lispro 100 Units/ML 3ML Syringe SC SCH
[2024-07-05] MEDS ORDERED: TraZODone HCl 50 MG Tab PO SCH (03:20)
--- NOTE | 2024-07-05 05:45 | NUR ---
SHIFT SUMMARY PATIENT IS ALERT AND ORIENTED. PATIENT HAS HAD NO ACUTE EVENTS THIS SHIFT. VITAL SIGNS REVIEWED. PATIENT IS A RECENT ADMIT FOR GI BLEED. PATIENT HAS HAD ONE UNIT PBC THIS SHIFT. H&H CAME BACK AT 7.1. PATIENT HAS HAD NO BLOODY STOOLS THIS SHIFT. PATIENT HAS HAD NO COMPLAINTS OF PAIN, NAUSEA, SOB OR VOMITTING THIS SHIFT. IV FLUIDS INFUSING ORDERED. BED IN LOCKED AND LOWEST POSITION. CALL LIGHT IN PLACE.
[2024-07-05 05:55] LABS: Hematocrit 21.3 % (33.0-51.0); Hemoglobin 6.8 g/dL (11.5-16.0); Mean Corpuscular HGB 28.6 pg (26.0-34.0); Mean Corpuscular HGB Conc 31.9 g/dL (31.5-36.5); Mean Corpuscular Volume 90 fL (80-100); Mean Platelet Volume 10.8 fL (9.1-12.4); NRBC ABSOLUTE 0.03 K/mm3 (0.00-0.02); NRBC Auto 0.3 /100 WBC (0.0-0.2); Platelet Count 249 K/mm3 (150-400); RDW Coefficient Variation 20.7 % (11.7-14.2); RDW Standard Deviation 64.3 fL (35.1-46.3); Red Blood Cell Count 2.38 M/mm3 (3.80-5.20); White Blood Cell Count 10.69 K/mm3 (4.00-11.30)
[2024-07-05] MEDS ORDERED: Pantoprazole Sodium 40 MG Tab PO SCH (06:00)
[2024-07-05 06:09] LABS: International Normalized Ratio 1.02; Prothrombin Time Results 10.9 Sec (9.7-11.5)
[2024-07-05 06:13] LABS: Bun/Creatinine Ratio 44.1 (12.0-20.0); Calcium, Blood 9.2 mg/dL (8.5-10.1); Creatinine, Blood 2.02 mg/dL (0.40-1.00); Magnesium, Blood 1.5 mg/dL (1.6-2.4); Potassium, Blood 3.6 mmol/L (3.5-5.5)
--- NOTE | 2024-07-05 06:36 | NUR ---
NURSE NOTE MORNING LABS SHOWED H&H= 6.8. CALLED PROVIDER. PUT IN NEW ORDERS TO INFUSE 1 UNIT RBC.
[2024-07-05] MEDS ORDERED: NS 500 ML IV SCH (08:00)
[2024-07-05] MEDS ORDERED: Lidocaine HCl 4% 5 ML SDA INH ONE (08:15)
[2024-07-05] MEDS ORDERED: Lidocaine HCl 4% 5 ML SDA ONE (09:28)
[2024-07-05] MEDS ORDERED: propofoL 50 ML IV ONE (09:35)
--- NOTE | 2024-07-05 09:45 | NUR ---
07/05/24 0945 Viraj Akins MONITOR INTACT WITH CONTINUOUS PULSE OXIMETRY, CONTINUOUS END TITAL CO2, AND INTERMITTENT BLOOD PRESSURE.AND EKG DR. HERNANDEZ DOING ANESTHESIA
[2024-07-05] MEDS ORDERED: FARXIGA10 MG PO (11:12)
[2024-07-05] MEDS ORDERED: CLOP75 PO (11:12)
[2024-07-05] MEDS ORDERED: Carvedilol12.5 MG PO (11:12)
[2024-07-05] MEDS ORDERED: DULO30 PO (11:12)
[2024-07-05] MEDS ORDERED: Acetaminophen650 M1 PO (11:13)
[2024-07-05] MEDS ORDERED: BUME2 PO (11:23)
[2024-07-05] MEDS ORDERED: POTA10T PO (11:23)
[2024-07-05 11:39] LABS: Adenovirus F 40/41 Not Detected (NOT DETECT); Astrovirus Not Detected (NOT DETECT); Campylobacter Sp Not Detected (NOT DETECT); Cryptosporidium Not Detected (NOT DETECT); Cyclospora Cayetanensis Not Detected (NOT DETECT); E. Coli O157 Not Detected (NOT DETECT); Entamoeba Histolytica Not Detected (NOT DETECT); Enteroaggregative E. coli-EAEC Not Detected (NOT DETECT); Enteropathogenic E. coli-EPEC Not Detected (NOT DETECT); Enterotoxigenic E. coli-ETEC Not Detected (NOT DETECT); Giardia Lamblia Not Detected (NOT DETECT); Norovirus GI/GII Not Detected (NOT DETECT); Plesiomonas Shigelloides Not Detected (NOT DETECT); Rotavirus A Not Detected (NOT DETECT); Salmonella Sp Not Detected (NOT DETECT); Sapovirus Not Detected (NOT DETECT); Shiga Toxin-prod E. coli-STEC Not Detected (NOT DETECT); Shigella/Enteroin E. coli-EIEC Not Detected (NOT DETECT); Vibrio Cholerae Not Detected (NOT DETECT); Vibrio Sp Not Detected (NOT DETECT); Yersinia Enterocolitica Not Detected (NOT DETECT)
[2024-07-05] MEDS ORDERED: Ipratropium/Albuterol SulF 2.5-0.5MG/3 ML Amp INH SCH ×2 (13:35→20:00)
[2024-07-05] MEDS ORDERED: Phenyleph/Mineral Oil/Petrolat 1 APPLIC/57 GM Tube PR PRN (16:00)
[2024-07-05] MEDS ORDERED: Carvedilol 6.25 MG Tab PO SCH (17:00)
[2024-07-05] MEDS ORDERED: ZOCOR20 MG PO (17:05)
[2024-07-05] MEDS ORDERED: GLIP5 PO (17:08)
[2024-07-05] MEDS ORDERED: OMEP20ER PO (17:08)
[2024-07-05] MEDS ORDERED: EZET10 PO (17:08)
[2024-07-05] MEDS ORDERED: B-121000 MC7 PO (17:09)
[2024-07-05] MEDS ORDERED: MULVITA PO (17:10)
[2024-07-05] MEDS ORDERED: ASCO500 PO (17:10)
[2024-07-05] MEDS ORDERED: Vitamin D1000 UNI1 PO (17:10)
--- NOTE | 2024-07-05 17:56 | NUR ---
SHIFT SUMMARY MS PINTO HAS HAD BLACK SEMI FORMED SOFT STOOLS TODAY. SHE WENT TO OR FOR UPPER ENDOSCOPY THIS MORNING. HGB 6.8 THIS AM, SHE TOLERATED 1 UNIT OF PRBCS WELL, SAID SHE FELT BETTER AFTER THE PRBC INFUSION. ON TELEMETRY, ST, NO CALLS FROM [facility]. ORIENTATED X4, SHE HAS DENIED PAIN TODAY. SHE SAID SHE GETS LEG CRAMPS AT NIGHT BUT NONE CURRENTLY. C/O HEMORHOIDS AND PREPAREATION H ORDERED. STAND BY ASSISTANCE TO THE BEDSIDE COMMODE, SHE IS ABLE TO TRANSFER WELL, GENERALLY FEELING WEAK. BED LOW, CALL LIGHT IN REACH.
[2024-07-05] MEDS ORDERED: LORazepam 1 MG Tab PO ONE (19:40)
[2024-07-05] MEDS ORDERED: Melatonin 3 MG Tab PO SCH (21:00)
[2024-07-05] MEDS ORDERED: Ezetimibe 10 MG Tab PO SCH (21:00)
[2024-07-05] MEDS ORDERED: Atorvastatin 10 MG Tab PO SCH (21:00)
[2024-07-05] MEDS ORDERED: TraZODone HCl 100 MG Tab PO SCH (21:00)
[2024-07-06] VITALS (8 sets, daily range): BP systolic 109–130; BP diastolic 54–74
[2024-07-06 05:33] LABS: Hematocrit 19.6 % (33.0-51.0); Hemoglobin 6.2 g/dL (11.5-16.0)
[2024-07-06] MEDS ORDERED: Levothyroxine Sodium 0.1 MG Tab PO SCH (06:00)
[2024-07-06 06:03] LABS: Albumin, Blood 2.9 g/dL (3.4-5.0); Albumin/Globulin Ratio 1.2 (0.8-1.8); Bilirubin, Total 0.4 mg/dL (0.1-1.0); Calcium, Blood 8.6 mg/dL (8.5-10.1); Creatinine, Blood 2.3 mg/dL (0.40-1.00); Globulin, Blood 2.4 g/dL (2.2-4.0); Magnesium, Blood 1.6 mg/dL (1.6-2.4); Potassium, Blood 3.8 mmol/L (3.5-5.5); Total Protein, Blood 5.3 g/dL (6.4-8.2)
--- NOTE | 2024-07-06 06:44 | NUR ---
SHIFT SUMMARY NOC PT A/O X 4. PLEASANT AND COOPERATIVE WITH CARE. VSS. PT POST OP EGD YESTERDAY WHICH WAS NEGATIVE. PT HAS NOT HAD ANY BM DURING SHIFT. HGB 6.8 YESTERDAY, HGB 6.2 THIS AM 1 UNIT PRBC ORDERED. PT ON TELE SINUS RHTYHM /1DHB @ 89 BPM. PT TRAZADONE INCREASED FROM 50 MG TO HOME DOSE OF 100 MG FOR RESTLESS LEG SYNDROME, PT WAS ABLE TO SLEEP COMFORTABLY DURING SHIFT. SN INFUSING @ 75 ML/HR. PT CURRENTLY RESTING WITH BED IN LOWEST POSITION, AND CALL LIGHT WITHIN REACH.
[2024-07-06] MEDS ORDERED: Insulin Human Lispro 100 Units/ML 3ML Syringe SC SCH (07:30)
[2024-07-06] MEDS ORDERED: Bumetanide 1 MG Tab PO SCH (09:00)
[2024-07-06] MEDS ORDERED: Allopurinol 100 MG Tab PO SCH (09:00)
[2024-07-06] MEDS ORDERED: DULoxetine HCL 30 MG Cap DR PO SCH (09:00)
--- NOTE | 2024-07-06 18:13 | NUR ---
SHIFT SUMMARY PT AOX4, 1 ASSIST TO THE BSC. I UNIT OF PBRC GIVEN TODAY, SHE TOLERATED IT WELL. CALLS AND MAKES HER NEEDS KNOWN. NO COMPLAINTS BY THE PT. REPOSITIONS SELF IN BED. CALL LIGHT WITHIN REACH, BED LOCKED AND IN THE LOWEST POSITION. WILL REPORT TO ONCOMING NURSE.
[2024-07-07] VITALS (8 sets, daily range): BP systolic 94–140; BP diastolic 50–79
[2024-07-07 06:24] LABS: BASOPHILS ABSOLUTE AUTO 0.04 K/mm3 (0.00-0.23); BASOPHILS PERCENT AUTO 1 % (0-2); EOSINOPHILS ABSOLUTE AUTO 0.33 K/mm3 (0.00-0.68); EOSINOPHILS PERCENT AUTO 4 % (0-6); Hematocrit 21.7 % (33.0-51.0); Hemoglobin 6.9 g/dL (11.5-16.0); IMMATURE GRAN ABSOLUTE AUTO 0.05 K/mm3 (0.00-0.10); IMMATURE GRAN PERCENT AUTO 1 % (0-1); LYMPHOCYTES PERCENT AUTO 22 % (21-46); MONOCYTES ABSOLUTE AUTO 0.72 K/mm3 (0.16-1.47); MONOCYTES PERCENT AUTO 9 % (4-13); Mean Corpuscular HGB 30.1 pg (26.0-34.0); Mean Corpuscular HGB Conc 31.8 g/dL (31.5-36.5); Mean Platelet Volume 10.9 fL (9.1-12.4); NEUTROPHILS ABSOLUTE AUTO 5.36 K/mm3 (1.96-9.15); NEUTROPHILS PERCENT AUTO 65 % (41-73); NRBC ABSOLUTE 0.02 K/mm3 (0.00-0.02); NRBC Auto 0.2 /100 WBC (0.0-0.2); Platelet Count 215 K/mm3 (150-400); RDW Coefficient Variation 20.2 % (11.7-14.2); RDW Standard Deviation 64.9 fL (35.1-46.3); Red Blood Cell Count 2.29 M/mm3 (3.80-5.20)
[2024-07-07 06:29] LABS: Mean Corpuscular Volume 95 fL (80-100)
[2024-07-07] MEDS ORDERED: Furosemide 10 MG/ML 4ML Vial IV ONE ×2 (07:00→09:30)
[2024-07-07 07:14] LABS: Albumin/Globulin Ratio 1.2 (0.8-1.8); Bilirubin, Total 0.5 mg/dL (0.1-1.0); Bun/Creatinine Ratio 38.5 (12.0-20.0); Calcium, Blood 8.5 mg/dL (8.5-10.1); Globulin, Blood 2.4 g/dL (2.2-4.0); Potassium, Blood 3.4 mmol/L (3.5-5.5); Total Protein, Blood 5.4 g/dL (6.4-8.2)
[2024-07-07] MEDS ORDERED: Potassium Chl 20MEQ/Water100ML 100 ML IV STA (07:36)
--- NOTE | 2024-07-07 07:56 | NUR ---
SHIFT SUMMARY NOC PT A/O X 4. PLEASANT AND COOPERATIVE WITH CARE. BP A LITTLE SOFT DURING FIRST AM CHECK. HS CB 154 CNI. ON TELE SINUS RHYTHM IN 80'S. AM HGB 6.9, DR PEREZ NOTIFIED AND 1 UNIT PRBC ORDERED ALONG WITH LASIX 40 MG IV TO BE GIVEN SKILLED NURSING THROUGH TRANSFUSION, DAY RN NOTIFIED OF INSTRUCTIONS. PT HAD 2 LOOSE BM THAT WERE BROWN, BUT STILL HAVE TARRY APPEARANCE. PT CURRENTLY RESTING WITH BED IN LOWEST POSITION, AND CALL LIGHT WITHIN REACH.
[2024-07-07] MEDS ORDERED: Potassium Chloride 10 Meq Tablet SA PO ONE (08:50)
[2024-07-07 14:14] LABS: Hematocrit 26.3 % (33.0-51.0); Hemoglobin 8.6 g/dL (11.5-16.0)
--- NOTE | 2024-07-07 18:16 | NUR ---
PT CARE REPORT GIVEN TO FELTON NOEL RN. PT TRANSFERRED FROM 353 TO 360
--- NOTE | 2024-07-07 18:39 | NUR ---
TRANSFER NOTE/SHIFT SUMMARY PATIENT TRANSFERRED TO ROOM 360 THIS EVENING AFTER 1700. PATIENT A/OX4, ABLE TO MAKE NEEDS KNOWN. INDEPENDENT IN ROOM. PATIENT RECIEVED 1 UNIT OF PRBCs THIS AM, HEMOGLOBIN NOW ABOVE 7. TELEMETRY IN PLACE, NO EVENTS NOTED SINCE TRANSFER. PATIENT DECLINING COLONSCOPY SINCE GI BLEED HAS IMPROVED AND PATIENT WITH MINIMAL BLEEDING TODAY AND NO BLEEDING SINCE TRANSFER. PLAN TO MONITOR LABS IN THE AM AND POSSIBLE DISCHARGE HOME. NO OTHER CONCERNS AT THIS TIME.
[2024-07-08 03:32] VITALS: BP 137/72
--- NOTE | 2024-07-08 05:13 | NUR ---
SHIFT SUMMARY PT DENIES ANY ABD DISCOMFORT THROUGH THE NIGHT. 1 SOFT BROWN STOOL THIS AM- NOT NOTICEABLY BLOODY/TARRY/BLACK. DENIES DIZZINESS/LIGHTHEADEDNESS. PT USED BIPAP DURING THE NIGHT. ABLE TO REPOSITION SELF. CALL LIGHT WITHIN REACH. SIDE RAILS UP X2.
[2024-07-08 05:21] LABS: BASOPHILS ABSOLUTE AUTO 0.06 K/mm3 (0.00-0.23); BASOPHILS PERCENT AUTO 1 % (0-2); EOSINOPHILS ABSOLUTE AUTO 0.28 K/mm3 (0.00-0.68); EOSINOPHILS PERCENT AUTO 3 % (0-6); Hematocrit 25.1 % (33.0-51.0); IMMATURE GRAN ABSOLUTE AUTO 0.05 K/mm3 (0.00-0.10); IMMATURE GRAN PERCENT AUTO 1 % (0-1); LYMPHOCYTES ABSOLUTE AUTO 1.69 K/mm3 (0.84-5.20); LYMPHOCYTES PERCENT AUTO 20 % (21-46); MONOCYTES PERCENT AUTO 8 % (4-13); Mean Corpuscular HGB 29.6 pg (26.0-34.0); Mean Corpuscular HGB Conc 31.9 g/dL (31.5-36.5); Mean Corpuscular Volume 93 fL (80-100); Mean Platelet Volume 10.7 fL (9.1-12.4); NEUTROPHILS ABSOLUTE AUTO 5.61 K/mm3 (1.96-9.15); NEUTROPHILS PERCENT AUTO 67 % (41-73); Platelet Count 236 K/mm3 (150-400); RDW Coefficient Variation 19.9 % (11.7-14.2); RDW Standard Deviation 61.6 fL (35.1-46.3); White Blood Cell Count 8.39 K/mm3 (4.00-11.30)
[2024-07-08 05:44] LABS: Albumin, Blood 3.3 g/dL (3.4-5.0); Albumin/Globulin Ratio 1.2 (0.8-1.8); Bilirubin, Total 0.5 mg/dL (0.1-1.0); Bun/Creatinine Ratio 35.3 (12.0-20.0); Calcium, Blood 8.6 mg/dL (8.5-10.1); Creatinine, Blood 2.21 mg/dL (0.40-1.00); Globulin, Blood 2.7 g/dL (2.2-4.0); Magnesium, Blood 1.5 mg/dL (1.6-2.4); Phosphorus, Blood 4.3 mg/dL (2.5-4.9); Potassium, Blood 3.6 mmol/L (3.5-5.5)
[2024-07-08] MEDS ORDERED: Mag Sulfate 1 GM/D5% 100ML 100 ML IV SCH (06:50)
[2024-07-08] MEDS ORDERED: Mag Sulfate 1 GM/D5% 100ML 100 ML IV ONE (07:00)
[2024-07-08 07:35] VITALS: BP 120/65
[2024-07-08 14:18] LABS: Hematocrit 27.1 % (33.0-51.0); Hemoglobin 8.6 g/dL (11.5-16.0)
--- NOTE | 2024-07-08 16:22 | NUR ---
DISCHARGE PT DISCHARGED HOME WITH SPOUSE VIA WHEELCHAIR AND PRIVATE VEHICLE. HEMOGLOBIN STABLE AT 8.6 WITH AFTERNOON LABS. 1 BROWN STOOL TODAY. EDUCATION AND FOLLOW UP INFORMATION PROVIDED. IV REMOVED, TELE REMOVED
== END 2024-07-08 16:02 | disposition home or self-care (01) | DRG 378 ==
LOC: ER 15:20 → MEDS 17:59
PROVIDERS: Internal Medicine; Internal Medicine Nephrology; Nurse Practitioner Acute Care; Physician Assistant; ADMIT Internal Medicine
PROC: 0DJ08ZZ Inspection of Upper Intestinal Tract, Via Natural or Artificial Opening Endoscopic (ICD-10-PCS; 2024-07-05)
PROC: 30233N1 Transfusion of Nonautologous Red Blood Cells into Peripheral Vein, Percutaneous Approach (ICD-10-PCS; principal; 2024-07-07)
DX: K92.2 Gastrointestinal hemorrhage, unspecified (principal); D62 Acute posthemorrhagic anemia; I13.0 Hypertensive heart and chronic kidney disease with heart failure and stage 1 through stage 4 chronic kidney disease, or unspecified chronic kidney disease; I50.32 Chronic diastolic (congestive) heart failure; N18.4 Chronic kidney disease, stage 4 (severe); N25.81 Secondary hyperparathyroidism of renal origin; Z68.42 Body mass index [BMI] 45.0-49.9, adult; G47.33 Obstructive sleep apnea (adult) (pediatric); I48.0 Paroxysmal atrial fibrillation; K64.4 Residual hemorrhoidal skin tags; E03.9 Hypothyroidism, unspecified; J44.9 Chronic obstructive pulmonary disease, unspecified; E66.01 Morbid (severe) obesity due to excess calories; E11.22 Type 2 diabetes mellitus with diabetic chronic kidney disease; N20.0 Calculus of kidney; I35.0 Nonrheumatic aortic (valve) stenosis; I05.0 Rheumatic mitral stenosis; N28.1 Cyst of kidney, acquired; E88.09 Other disorders of plasma-protein metabolism, not elsewhere classified; D63.1 Anemia in chronic kidney disease; D50.9 Iron deficiency anemia, unspecified; D13.2 Benign neoplasm of duodenum; E87.6 Hypokalemia; Z90.710 Acquired absence of both cervix and uterus; Z90.722 Acquired absence of ovaries, bilateral; Z90.89 Acquired absence of other organs; Z88.6 Allergy status to analgesic agent; Z87.11 Personal history of peptic ulcer disease; Z87.19 Personal history of other diseases of the digestive system; Z88.8 Allergy status to other drugs, medicaments and biological substances; Z91.041 Radiographic dye allergy status; Z79.890 Hormone replacement therapy; Z79.899 Other long term (current) drug therapy; Z79.4 Long term (current) use of insulin; Z79.02 Long term (current) use of antithrombotics/antiplatelets
CPT/HCPCS: 36415; 36430; 74176; 80048; 80053; 82272; 82947; 83735; 84100; 85014; 85018; 85025; 85027; 85610; 86850; 86900; 86901; 86902; 86922; 87507; 94640; 94664; 94760; 96374; 97161; 97530; 99285-25; A9270; J1940; J2001; J2470; J2704; J3475; J7030; J7040; P9016

== ENCOUNTER → 2024-08-06 | Outpatient (CLI) | payer MEDICARE, OTHER ==
[~2024-08-06] MED LIST changes: +Acetaminophen650 M1 PO; +BUME2 PO; +CLOP75 PO; +Carvedilol12.5 MG PO; +DULO30 PO; +EZET10 PO; +FARXIGA10 MG PO; +GLIP5 PO; +MULVITA PO; +POTA10T PO; +Vitamin D1000 UNI1 PO; +ZOCOR20 MG PO
[2024-08-07 12:59] LABS: Percent Saturation 21.1 % (15.0-50.0)
== END ==
LOC: LAB SHORT 10:18 → LAB 10:18
PROVIDERS: Internal Medicine Hematology & Oncology
DX: E53.8 Deficiency of other specified B group vitamins (principal); E61.1 Iron deficiency; E53.9 Vitamin B deficiency, unspecified
CPT/HCPCS: 82607; 82728; 83540; 83550

== ENCOUNTER → 2024-09-24 | Outpatient (CLI) | payer MEDICARE, OTHER ==
[2024-09-24 19:07] LABS: BASOPHILS ABSOLUTE AUTO 0.06 K/mm3 (0.00-0.23); BASOPHILS PERCENT AUTO 1 % (0-2); EOSINOPHILS ABSOLUTE AUTO 0.29 K/mm3 (0.00-0.68); EOSINOPHILS PERCENT AUTO 4 % (0-6); Hemoglobin 11.1 g/dL (11.5-16.0); IMMATURE GRAN ABSOLUTE AUTO 0.02 K/mm3 (0.00-0.10); IMMATURE GRAN PERCENT AUTO 0 % (0-1); LYMPHOCYTES PERCENT AUTO 21 % (21-46); MONOCYTES ABSOLUTE AUTO 0.73 K/mm3 (0.16-1.47); MONOCYTES PERCENT AUTO 11 % (4-13); Mean Corpuscular HGB 32.8 pg (26.0-34.0); Mean Corpuscular HGB Conc 32.6 g/dL (31.5-36.5); Mean Corpuscular Volume 101 fL (80-100); NEUTROPHILS ABSOLUTE AUTO 4.13 K/mm3 (1.96-9.15); NEUTROPHILS PERCENT AUTO 62 % (41-73); Platelet Count 199 K/mm3 (150-400); RDW Coefficient Variation 15.1 % (11.7-14.2); RDW Standard Deviation 55.8 fL (35.1-46.3); Red Blood Cell Count 3.38 M/mm3 (3.80-5.20); White Blood Cell Count 6.63 K/mm3 (4.00-11.30)
== END ==
LOC: LAB 17:13 → LAB SHORT 17:13
PROVIDERS: Internal Medicine Hematology & Oncology
DX: R60.9 Edema, unspecified (principal)
CPT/HCPCS: 85025